=== PATIENT | female | born 1995 | race Caucasian/White ===

== ENCOUNTER → 2024-01-01 14:06 | Outpatient (REF) | payer OTHER, SELFPAY | LOC: PNTC 14:06 | PROVIDERS: ATTENDING PHYSICIAN Obstetrics & Gynecology | DX: Z34.82 Encounter for supervision of other normal pregnancy, second trimester (principal) | CPT/HCPCS: 76805 ==

== ENCOUNTER 2024-03-29 12:42 | Observation (INO) | payer OTHER, SELFPAY ==
[2024-03-29 12:46] VITALS: BMI 38.1
[2024-03-29 12:50] VITALS: BP 152/88
[2024-03-29 13:46] LABS: % Basophils 0.5 % (0-2); % Eosinophils 0.8 % (0-6); % Immature Granulocytes 0.9 % (0-0.5); % Lymphocytes 18.5 % (20.5-51.1); % Monocytes 8.7 % (1.7-9.3); % Neutrophils 70.6 % (42.2-75.2); Absolute Basophils 0.1 10^3/uL (0-0.2); Absolute Eosinophils 0.1 10^3/uL (0-0.7); Absolute Immature Granulocytes 0.1 10^3/uL (0-0.05); Absolute Lymphocytes 2.3 10^3/uL (1.2-3.4); Absolute Monocytes 1.1 10^3/uL (0.1-0.6); Absolute Neutrophils 8.6 10^3/uL (1.4-6.5); Hematocrit 38.1 % (37.0-47.0); Hemoglobin 12.4 g/dL (12.0-16.0); Mean Corp Hgb Conc. 32.5 g/dL (33.0-37.0); Mean Corpuscular Hgb 29.5 pg (27.0-31.0); Mean Corpuscular Volume 90.5 fL (81.0-99.0); Mean Platelet Volume 11.3 fL (7.4-10.4); Nucleated Red Blood Cells % 0 %; Platelet Count 173 10^3/uL (130-400); Red Blood Cell Count 4.21 10^6/uL (4.20-5.40); Red Cell Dist. Width 12.9 % (11.5-14.5); White Blood Cell Count 12.2 10^3/uL (4.8-10.8)
[2024-03-29 14:00] LABS: ALT (SGPT) 14 U/L (0-35); AST (SGOT) 21 U/L (14-36); Albumin 3.5 g/dl (3.5-5.0); Alkaline Phosphatase 303 U/L (38-126); Blood Urea Nitrogen 17 mg/dl (7-17); Calcium 9.7 mg/dl (8.4-10.2); Carbon Dioxide 21 mmol/L (22-30); Chloride 108 mmol/L (98-107); Estimated Creatinine Clearance > 125 ml/min; Glucose 75 mg/dl (70-99); Potassium 4.3 mmol/L (3.5-5.1); Sodium 135 mmol/L (135-145); Total Bilirubin 0.4 mg/dl (0.2-1.3); Total Protein 6.4 g/dl (6.3-8.2); eGFR > 60.00
[2024-03-29 14:26] LABS: Protein/creatinine Ratio 1.7; Urine Protein 65 mg/dl
== END 2024-03-29 15:00 | disposition home or self-care (01) ==
LOC: LDRP 12:42
PROVIDERS: ADMITTING PHYSICIAN Obstetrics & Gynecology
DX: O14.03 Mild to moderate pre-eclampsia, third trimester (principal); O12.23 Gestational edema with proteinuria, third trimester; Z3A.33 33 weeks gestation of pregnancy
CPT/HCPCS: 59025; 80053; 82570; 84156; 85025; G0378

== ENCOUNTER 2024-04-06 22:45 | Observation (INO) | payer OTHER, SELFPAY ==
[2024-04-06 23:02] VITALS: BP 163/95; BMI 37.6
[2024-04-06 23:20] LABS: Hematocrit 33.4 % (37.0-47.0); Hemoglobin 11.7 g/dL (12.0-16.0); Mean Corpuscular Hgb 30.3 pg (27.0-31.0); Mean Corpuscular Volume 86.5 fL (81.0-99.0); Mean Platelet Volume 11.6 fL (7.4-10.4); Platelet Count 153 10^3/uL (130-400); Red Blood Cell Count 3.86 10^6/uL (4.20-5.40); Red Cell Dist. Width 13.2 % (11.5-14.5); White Blood Cell Count 11.8 10^3/uL (4.8-10.8)
[2024-04-06 23:29] LABS: Urine Albumin 2+ (Neg - Trace); Urine Bilirubin Negative (Negative); Urine Character Clear (Clear); Urine Color Yellow; Urine Glucose Negative (Negative); Urine Ketone Negative (Negative); Urine Leukocyte Negative (Negative); Urine Nitrite Negative (Negative); Urine Occult Blood Negative (Negative); Urine Specific Gravity 1.005 (<1.030); Urine Urobilinogen Negative (Neg - 1+)
[2024-04-06 23:41] LABS: ALT (SGPT) 25 U/L (0-35); AST (SGOT) 33 U/L (14-36); Albumin 3.1 g/dl (3.5-5.0); Alkaline Phosphatase 311 U/L (38-126); Blood Urea Nitrogen 15 mg/dl (7-17); Calcium 9.1 mg/dl (8.4-10.2); Carbon Dioxide 23 mmol/L (22-30); Chloride 106 mmol/L (98-107); Estimated Creatinine Clearance > 125 ml/min; Glucose 85 mg/dl (70-99); Potassium 4.2 mmol/L (3.5-5.1); Sodium 134 mmol/L (135-145); Total Bilirubin 0.3 mg/dl (0.2-1.3); Total Protein 5.9 g/dl (6.3-8.2); Uric Acid 7.5 mg/dl (2.5-6.2); eGFR > 60.00
[2024-04-06 23:45] LABS: Protein/creatinine Ratio 15.5; Urine Protein 187 mg/dl
[2024-04-07] MEDS: CELESTONE SOLUSPAN 2 MG IM (00:41)
[2024-04-07 00:55] LABS: Urine Amorphous Seen; Urine Bacteria Few (Negative); Urine Red Blood Cell 0-2 /HPF (0-2); Urine Squamous Cell 21-25 /LPF (Few); Urine White Cell 0-2 /HPF (0-5)
[2024-04-07 05:47] LABS: Hematocrit 36.1 % (37.0-47.0); Hemoglobin 12.4 g/dL (12.0-16.0); Mean Corp Hgb Conc. 34.3 g/dL (33.0-37.0); Mean Corpuscular Hgb 30.3 pg (27.0-31.0); Mean Corpuscular Volume 88.3 fL (81.0-99.0); Mean Platelet Volume 11.5 fL (7.4-10.4); Platelet Count 147 10^3/uL (130-400); Red Blood Cell Count 4.09 10^6/uL (4.20-5.40); Red Cell Dist. Width 13.1 % (11.5-14.5); White Blood Cell Count 12.2 10^3/uL (4.8-10.8)
[2024-04-07 06:01] LABS: ALT (SGPT) 23 U/L (0-35); AST (SGOT) 31 U/L (14-36); Albumin 3.2 g/dl (3.5-5.0); Alkaline Phosphatase 336 U/L (38-126); Blood Urea Nitrogen 13 mg/dl (7-17); Carbon Dioxide 22 mmol/L (22-30); Chloride 107 mmol/L (98-107); Estimated Creatinine Clearance > 125 ml/min; Glucose 97 mg/dl (70-99); Potassium 4.7 mmol/L (3.5-5.1); Sodium 134 mmol/L (135-145); Total Bilirubin 0.3 mg/dl (0.2-1.3); eGFR > 60.00
[2024-04-07] MEDS: TYLENOL 1000 MG PO (16:42)
[2024-04-08] MEDS: CELESTONE SOLUSPAN 2 MG IM (00:10)
[2024-04-08 05:03] LABS: Hematocrit 38.2 % (37.0-47.0); Hemoglobin 12.7 g/dL (12.0-16.0); Mean Corp Hgb Conc. 33.2 g/dL (33.0-37.0); Mean Corpuscular Hgb 30.8 pg (27.0-31.0); Mean Corpuscular Volume 92.5 fL (81.0-99.0); Mean Platelet Volume 11.4 fL (7.4-10.4); Platelet Count 143 10^3/uL (130-400); Red Blood Cell Count 4.13 10^6/uL (4.20-5.40); White Blood Cell Count 12.2 10^3/uL (4.8-10.8)
[2024-04-08 05:36] LABS: ALT (SGPT) 22 U/L (0-35); AST (SGOT) 27 U/L (14-36); Albumin 3.3 g/dl (3.5-5.0); Alkaline Phosphatase 326 U/L (38-126); Blood Urea Nitrogen 15 mg/dl (7-17); Calcium 9.1 mg/dl (8.4-10.2); Carbon Dioxide 21 mmol/L (22-30); Chloride 106 mmol/L (98-107); Estimated Creatinine Clearance > 125 ml/min; Glucose 104 mg/dl (70-99); Sodium 133 mmol/L (135-145); Total Bilirubin 0.3 mg/dl (0.2-1.3); Total Protein 6.2 g/dl (6.3-8.2); eGFR > 60.00
== END 2024-04-08 14:42 | disposition home or self-care (01) ==
LOC: LDRP 22:45
PROVIDERS: Obstetrics & Gynecology; ADMITTING PHYSICIAN Obstetrics & Gynecology
DX: O14.03 Mild to moderate pre-eclampsia, third trimester (principal); Z3A.34 34 weeks gestation of pregnancy; O32.1XX0 Maternal care for breech presentation, not applicable or unspecified
CPT/HCPCS: 76815; 80053; 81003; 81015; 82570; 84156; 84550; 85027; 86850; 86870; 86900; 86901; 87070; G0378

== ENCOUNTER 2024-04-09 04:29 | Inpatient (IN) | payer OTHER, SELFPAY ==
[2024-04-09 05:18] LABS: % Basophils 0.2 % (0-2); % Eosinophils 0.1 % (0-6); % Immature Granulocytes 1.7 % (0-0.5); % Lymphocytes 19.6 % (20.5-51.1); % Monocytes 7.3 % (1.7-9.3); % Neutrophils 71.1 % (42.2-75.2); Absolute Immature Granulocytes 0.2 10^3/uL (0-0.05); Absolute Lymphocytes 2.7 10^3/uL (1.2-3.4); Absolute Neutrophils 9.9 10^3/uL (1.4-6.5); Hematocrit 34.7 % (37.0-47.0); Hemoglobin 11.8 g/dL (12.0-16.0); Mean Corpuscular Hgb 30.3 pg (27.0-31.0); Mean Corpuscular Volume 89.2 fL (81.0-99.0); Mean Platelet Volume 11.6 fL (7.4-10.4); Nucleated Red Blood Cells % 0 %; Platelet Count 135 10^3/uL (130-400); Red Blood Cell Count 3.89 10^6/uL (4.20-5.40); Red Cell Dist. Width 13.4 % (11.5-14.5); White Blood Cell Count 13.9 10^3/uL (4.8-10.8)
[2024-04-09 05:26] LABS: Cord ABG Comment CORD BLOOD; O2 Saturation % Cord ABG 27.9 %; PO2 Cord ABG 25 mmHg
[2024-04-09 05:30] LABS: O2 Saturation % Cord ABG 14.9 %; PO2 Cord ABG 20 mmHg
[2024-04-09 05:34] LABS: pH Cord ABG < 6.80
[2024-04-09 05:35] LABS: PCO2 Cord ABG > 115 mmHg
[2024-04-09 05:36] LABS: PCO2 Cord ABG > 115 mmHg; pH Cord ABG < 6.80
[2024-04-09 05:51] VITALS: BP 119/79
[2024-04-09 05:57] LABS: Fibrinogen 224 MG/DL (199-459)
[2024-04-09 06:00] VITALS: BP 113/73; BMI 37.6
[2024-04-09] MEDS: TYLENOL 1000 MG PO (06:08)
[2024-04-09] MEDS: DILAUDID 0.25 MG IV (06:12)
[2024-04-09 06:15] VITALS: BP 137/78
[2024-04-09] MEDS: PITOCIN 30 UNITS/NSS 500 ML IV (06:29)
[2024-04-09 06:30] VITALS: BP 144/80
[2024-04-09] MEDS: LR 1000 IV ×3 (07:15→15:00)
[2024-04-09] MEDS: TORADOL 15 MG IV (08:00)
[2024-04-09 08:26] LABS: ALT (SGPT) 21 U/L (0-35); AST (SGOT) 36 U/L (14-36); Albumin 3.1 g/dl (3.5-5.0); Alkaline Phosphatase 273 U/L (38-126); Blood Urea Nitrogen 23 mg/dl (7-17); Carbon Dioxide 21 mmol/L (22-30); Chloride 109 mmol/L (98-107); Glucose 85 mg/dl (70-99); Potassium 4.7 mmol/L (3.5-5.1); Sodium 136 mmol/L (135-145); Total Bilirubin 0.5 mg/dl (0.2-1.3); Total Protein 5.9 g/dl (6.3-8.2); eGFR > 60.00
[2024-04-09] MEDS: MAGNESIUM SULFATE 100 IV (08:40)
[2024-04-09] MEDS: MAGNESIUM SULFATE 40 GRAM 1000 IV (09:02)
[2024-04-09] MEDS: TRANDATE 20 MG IV (09:10)
[2024-04-09] MEDS: TRANDATE 200 MG PO ×2 (11:06→19:55)
[2024-04-09] MEDS: TORADOL IV (14:00)
[2024-04-09 14:51] LABS: Hematocrit 26.2 % (37.0-47.0); Hemoglobin 8.9 g/dL (12.0-16.0); Mean Corpuscular Hgb 30.3 pg (27.0-31.0); Mean Corpuscular Volume 89.1 fL (81.0-99.0); Red Blood Cell Count 2.94 10^6/uL (4.20-5.40); Red Cell Dist. Width 13.5 % (11.5-14.5); White Blood Cell Count 24.1 10^3/uL (4.8-10.8)
[2024-04-09 14:56] LABS: ALT (SGPT) 46 U/L (0-35); AST (SGOT) 126 U/L (14-36); Albumin 2.3 g/dl (3.5-5.0); Alkaline Phosphatase 209 U/L (38-126); Blood Urea Nitrogen 31 mg/dl (7-17); Calcium 8.2 mg/dl (8.4-10.2); Carbon Dioxide 20 mmol/L (22-30); Chloride 108 mmol/L (98-107); Glucose 99 mg/dl (70-99); Potassium 5.3 mmol/L (3.5-5.1); Sodium 131 mmol/L (135-145); Total Bilirubin 0.5 mg/dl (0.2-1.3); Total Protein 4.7 g/dl (6.3-8.2); eGFR 32.31
[2024-04-09 15:19] LABS: % Basophils 0.2 % (0-2); % Immature Granulocytes 1.3 % (0-0.5); % Lymphocytes 6.8 % (20.5-51.1); % Monocytes 8.4 % (1.7-9.3); % Neutrophils 83.3 % (42.2-75.2); Absolute Basophils 0.1 10^3/uL (0-0.2); Absolute Immature Granulocytes 0.3 10^3/uL (0-0.05); Absolute Lymphocytes 1.6 10^3/uL (1.2-3.4); Mean Platelet Volume 11.7 fL (7.4-10.4); Nucleated Red Blood Cells % 0 %; Platelet Count 61 10^3/uL (130-400)
--- NOTE | 2024-04-09 15:54 | W.CON.NEPH ---
Addendum entered and electronically signed by Ale Antonio MD 04/09/24 16:56:
After more consideration, I will also send complement labs, lupus labs, APLS
Unsure if this could be TTP vs. aHUS vs. HELLP?
Original Note:
Consultation
-
Date/Time Consultation Requested: 04/09/2024 13:37
Date/Time Consultation Performed: 04/09/2024 3:54PM
Requesting Provider: Felisha Garcia
Performing Provider: Ale Antonio
Reason for Consultation: YUE
Medical History
-
Chief Complaint: YUE, oliguria
History of Present Illness:
Ms. Perez is a 28YOF with no significant past medical history () who nephrology is seeing post after C section at 5AM today for oliguria and YUE.
Of note, she was here over the weekend for pre-eclampsia but she did not meet criteria for delivery and was sent home on Monday. She presented this AM due to bleeding and cramping. She had placental abruption and taken for emergent C section. Her
male was transferred to [facility] for resuscitation. She states that she is feeling well after surgery this AM. She does note significant edema. Her urine output is noted to be anywhere from 0-30cc/hr. She is recieving a Mg gtt at this time, along
with LR. Of note, she did notice that for 2 weeks prior to delivery, she did have decreased UOP compared to prior. Urine was still clear yellow in color.
Past Medical History
Past Medical History: None
Past Surgical History: None
Social History
Tobacco: Non-Smoker
Alcohol: Occasional
Drug: None
Family History
no family history of kidney problems
Family History: Not Pertinent
Allergies / Home Medications
Allergy/AdvReac Type Severity Reaction Status Date / Time
No Known Allergies Allergy Verified 04/06/24 23:02
�Medication �Instructions �Recorded �Confirmed �Type
1 tab PO 1XD Supplement 03/29/24 04/06/24 History
Review of Systems
-
History Source: Patient
All other systems: Negative unless noted
Constitutional: Fatigue
Physical Exam
Vital Signs
Vital Signs
Temp Pulse Resp BP Pulse Ox
97.9 F 78 13 146/84 100
04/09/24 06:30 04/09/24 11:06 04/09/24 06:30 04/09/24 11:06 04/09/24 06:30
Lab Results
WBC 24.1 10^3/uL (4.8-10.8) H 04/09/24 14:23
RBC 2.94 10^6/uL (4.20-5.40) L 04/09/24 14:23
Hgb 8.9 g/dL (12.0-16.0) L D 04/09/24 14:23
Hct 26.2 % (37.0-47.0) L 04/09/24 14:23
Plt Count 61 10^3/uL (130-400) L D 04/09/24 14:23
Sodium 131 mmol/L (135-145) L 04/09/24 14:23
Potassium 5.3 mmol/L (3.5-5.1) H 04/09/24 14:23
Chloride 108 mmol/L (98-107) H 04/09/24 14:23
Carbon Dioxide 20 mmol/L (22-30) L 04/09/24 14:23
BUN 31 mg/dl (7-17) H 04/09/24 14:23
Creatinine 2.1 mg/dL (0.6-1.0) H 04/09/24 14:23
eGFR 32.31 04/09/24 14:23
Glucose 99 mg/dl (70-99) 04/09/24 14:23
Calcium 8.2 mg/dl (8.4-10.2) L 04/09/24 14:23
Albumin 2.3 g/dl (3.5-5.0) L 04/09/24 14:23
Physical Exam
General: AOx3, No Distress and Nontoxic
HEENT: PERRL, EOMI, Anicteric, Conjunctivae Clear, Ear/Nose Intact, Hearing Normal, Oropharynx Clear/Moist, Dentition Intact, Facial Symmetry, Neck Supple, Trachea Midline, No JVD and No Thyromegaly
Respiratory: Clear
Cardiac: S1/S2, Regular Rate/Rhythm and Edema (+3 pitting edema to the knees)
Breast: N/A
Abdomen: Soft, Nondistended and Other (C section scar)
Rectal: Deferred by Provider
Genito-urinary: Clear Urine
Musculoskeletal: No Clubbing, No Cyanosis and Edema
Skin: No Rash, Warm and Dry
Neuro: Nonfocal/Grossly Intact
Hematologic/Lymphatic: No Cervical Lymphadenopathy
Psych: Mood/afflect pleasant and Insight/judgement good
Data Reviewed
-
Labs: Labs Reviewed by me
Old Records: Reviewed
Assessment/Plan
-
Assessment
Pre-eclampsia
Placental abruption
YUE
oliguria
NAGMA + respiratory alkalosis
Plan:
- Patient noted to have acute worsening of kidney function from baseline of 0.7 (still a bit high for ) to 2.1 along with oliguria
- I am concerned about ATN in the setting of placental abruption vs pre-eclampsia vs TMA (Hgb and platelets noted) vs. post renal
- Obtain LDH, hapto, consider heme c/s
- please obtain peripheral smear
- UA, UPCR, UACR
- consider renal ultrasound
- continue supportive measures, keep MAP >65
- monitor I/Os
- avoid further nephrotoxic agents
--- NOTE | 2024-04-09 17:28 | CON.ONC ---
Impression
Impression
28 yo F w/ mild preeclampsia at 35wks gestation, underwent emergent this am for vag bleeding, with HTN post-op, and now with drop in hgb & platelets, and bump in creatinine w/ decreased urine output, and bump in AST/ALT
Peripheral smear reviewed: noted for rare (0-1) schistocyte/HPF
Plan
Plan
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
HTN prior to abnormal lab findings is typical of HELLP
Peripheral smear reviewed, w/ rare schistocytes, as can be seen in HELLP. Would expect more schistocytes in TTP
Await pending LDH, retic count, haptoglobin; normal bilirubin noted. LDH is often markedly elevated in TTP, and less so in HELLP
Elevated AST/ALT are suggestive of HELLP, usually normal/minimally elevated in TTP and HUS
In addition to labs ordered by Dr. Antonio, will repeat CBC, CMP, check retic count, coags/fibrinogen, [id number], and von willebrand multimers.
Treatment of HELLP/preeclampsia with severe features is supportive care. Platelet count usually nadirs 24-28hr after delivery. There is no role for plasma exchange in HELLP.
Will follow along closely.
Patient History
History of Present Illness
This is a 28yo F who was being monitored for mild preeclampia in , who presented this morning at 35 weeks with vaginal bleeding and heart rates in the 60s, for which she was taken for emergent . The baby was breech, and was
found to have scores of 1, 5, 8 and at 1, 5 and 10 minutes, and has been transferred to [facility] where he is reportedly doing well. Post-op blood pressures were elevated, necessitating labetalol.
Admission labs were noted for hgb of 11.8 and platelet count of 135, BUN of 23 and creatinine of 1.0, with normal AST/ALT. Labs this afternoon noted for hgb 8.9, platelet count of 61 and elevated AST/ALT. Bilirubin is normal. Creatinine is up to
2.1, with decreased UOP.
Patient notes some tenderness at her incision and feels thirsty. She denies any bleeding from IV sites, new bruises, cough, dyspnea, chest pain, or other complaints.
Asked to evaluate for thrombotic microangiopathies other than HELLP (ie, TTP, HUS)
Past-Medical/Surgical History
PMH/PSH - none
FH: no family h/o blood/bleeding d/o
SH: non smoker,
Patient Medication
�Medication �Instructions �Recorded �Confirmed �Last Taken �Type
1 tab PO 1XD Supplement 03/29/24 04/09/24 04/06/24 08:00 History
Active Medications
Generic Name Dose Route Start Last Admin
Trade Name Freq PRN Reason Stop Dose Admin
Acetaminophen 650 mg 04/09/24 06:14
Acetaminophen 325 Mg Tablet PO 05/07/24 06:13
Q4HPRN PRN
mild pain
Calcium Carbonate 2 tablet 04/09/24 06:14
Calcium Carbonate 500 Mg (Regular-Strength) Chew Tablet PO 05/07/24 06:13
Q6HPRN PRN
indigestion
Calcium Gluconate 1,000 mg 04/09/24 08:06
Calcium Gluconate 10% (100 Mg/Ml) 10 Ml Vial IV 05/07/24 08:05
PRN PRN
mag toxicity or resp rate <12
Diphenhydramine HCl 25 mg 04/09/24 05:08
Diphenhydramine 50 Mg/Ml 1 Ml Vial IV 04/10/24 05:08
PACU-ONCEPRN PRN
itching
Diphtheria/Tetanus/Acell Pertussis 0.5 ml 04/12/24 08:00
Adacel (Tetanus/Dipth/Acellular Pertussis) 0.5 Ml IM 04/12/24 08:01
.ONCE ONE
Hydralazine HCl 10 mg 04/09/24 10:00
Hydralazine 20 Mg/Ml Vial IV 04/10/24 09:59
ONCE PRN PRN
SBP >/= 160 or DBP >/= 110
Hydromorphone HCl 0.25 mg 04/09/24 05:08 04/09/24 06:12
Hydromorphone 0.25 Mg/0.5 Ml Syringe IV 0.25 mg
PACU-Q5MPRN PRN Administration
pain no po access
Oxytocin/Sodium Chloride 30 unit in 500 mls @ 0 mls/hr 04/09/24 04:45 04/09/24 06:29
Pitocin 30 Units/Nss 500 Ml IV 04/10/24 04:44 500 mls
DIRECTED AUREA Administration
As Directed
Oxytocin/Sodium Chloride 30 unit in 500 mls @ 0 mls/hr 04/09/24 06:14
Pitocin 30 Units/Nss 500 Ml IV 05/07/24 06:13
PRN PRN
excessive bleeding
As Directed
Magnesium Sulfate 40 gram in 1,000 mls @ 50 mls/hr 04/09/24 08:15 04/09/24 09:02
Magnesium Sulfate 40 Gram IV 04/10/24 08:14 1,000 mls
.Q20H AUREA Administration
Ibuprofen 600 mg 04/10/24 08:00
Ibuprofen 600 Mg Tablet PO 05/08/24 07:59
Q6HPRN PRN
cramps
Labetalol HCl 20 mg 04/09/24 10:00
Labetalol Hcl 5 Mg/1 Ml (20 Mg/4 Ml) Injection IV 04/10/24 09:59
ONCE PRN PRN
SBP >/= 160 or DBP >/= 110
Labetalol HCl 40 mg 04/09/24 10:00
Labetalol Hcl 5 Mg/1 Ml (20 Mg/4 Ml) Injection IV 04/10/24 09:59
ONCE PRN PRN
SBP >/= 160 or DBP >/= 110
Labetalol HCl 80 mg 04/09/24 10:00
Labetalol Hcl 5 Mg/1 Ml (20 Mg/4 Ml) Injection IV 04/10/24 09:59
ONCE PRN PRN
SBP >/= 160 or DBP >/= 110
Labetalol HCl 200 mg 04/09/24 11:00 04/09/24 11:06
Labetalol 200 Mg Tablet PO 05/07/24 10:59 200 mg
BID AUREA Administration
Meperidine HCl 12.5 mg 04/09/24 05:08
Meperidine 25 Mg/Ml Injection IV 04/10/24 05:08
PACU-Q5MPRN PRN
shivering
Methylergonovine Maleate 0.2 mg 04/09/24 06:14
Methergine (0.2 Mg/Ml) 1 Ml Injection IM
ONCE PRN PRN
excessive bleeding
Metoclopramide HCl 10 mg 04/09/24 06:14
Metoclopramide 10 Mg/2 Ml Vial IV 05/07/24 06:13
Q6HPRN PRN
nausea/vomiting
Morphine Sulfate 2 mg 04/09/24 05:08
Morphine 2 Mg/Ml Syringe IV 04/10/24 05:08
PACU-Q5MPRN PRN
breakthrough pain
Ondansetron HCl 4 mg 04/09/24 05:08
Ondansetron 4 Mg/2 Ml Vial IV 04/10/24 05:08
PACU-ONCEPRN PRN
nausea
Oxycodone/Acetaminophen 1 tablet 04/09/24 06:14
Oxycodone 5 Mg/Apap 325 Mg (Percocet) PO 04/23/24 06:13
Q4HPRN PRN
moderate pain
Oxycodone/Acetaminophen 2 tablet 04/09/24 06:14
Oxycodone 5 Mg/Apap 325 Mg (Percocet) PO 04/23/24 06:13
Q4HPRN PRN
severe pain
Rho Immune Globulin 1,500 unit 04/10/24 08:00
Rho(D) Immune Globulin (Hyperrho S/D) 1,500 Unit Syringe (300 Mcg) IM 04/10/24 08:01
ONCE ONE
Senna/Docusate Sodium 1 tablet 04/09/24 06:14
Docusate W/Senna (Catalina-Colace) Tablet PO 05/07/24 06:13
DAILYPRN PRN
constipation
Simethicone 80 mg 04/09/24 06:14
Simethicone 80 Mg Chewable Tablet PO 05/07/24 06:13
TIDPRN PRN
flatulence
Sodium Chloride 0 flush 04/09/24 08:00
Sodium Chloride 0.9% (Flush) Syringe IV 05/07/24 07:59
PER PROTOCOL AUREA
Review of Systems
-
History Source: Patient
All Other Systems: Not reviewed unless documented
Physical Exam
-
General: Well Developed, Well Nourished, No Apparent Distress and Conversant
HEENT: Moist Mucous Membranes; Negative Jaundice
Musculoskeletal: No Clubbing, No Cyanosis and No Edema
Extremities: No C/C/E
Neurology: Non Focal, No Lateralizing Symptoms and No Word Finding Difficulty
Skin: Warm, Dry, IV Access / Catheter Site (normal appearing, no bleeding) and No Ecchymosis; Negative Rash, Ulcers, Lesions or Jaundice
Psych: Calm and Intact Judgement/Insight
Labs
Lab Results
WBC 24.1 10^3/uL (4.8-10.8) H 04/09/24 14:23
RBC 2.94 10^6/uL (4.20-5.40) L 04/09/24 14:23
Hgb 8.9 g/dL (12.0-16.0) L D 04/09/24 14:23
Hct 26.2 % (37.0-47.0) L 04/09/24 14:23
MCV 89.1 fL (81.0-99.0) 04/09/24 14:23
MCH 30.3 pg (27.0-31.0) 04/09/24 14:23
MCHC 34.0 g/dL (33.0-37.0) 04/09/24 14:23
RDW 13.5 % (11.5-14.5) 04/09/24 14:23
Plt Count 61 10^3/uL (130-400) L D 04/09/24 14:23
MPV 11.7 fL (7.4-10.4) H 04/09/24 14:23
Abs Immat Gran (auto) 0.3 10^3/uL (0-0.05) H 04/09/24 14:23
Absolute Neuts (auto) 20.0 10^3/uL (1.4-6.5) H 04/09/24 14:23
Absolute Lymphs (auto) 1.6 10^3/uL (1.2-3.4) 04/09/24 14:23
Absolute Monos (auto) 2.0 10^3/uL (0.1-0.6) H 04/09/24 14:23
Absolute Eos (auto) 0.0 10^3/uL (0-0.7) 04/09/24 14:23
Absolute Basos (auto) 0.1 10^3/uL (0-0.2) 04/09/24 14:23
Immature Gran % 1.3 % (0-0.5) H 04/09/24 14:23
Neutrophils % 83.3 % (42.2-75.2) H 04/09/24 14:23
Lymphocytes % 6.8 % (20.5-51.1) L 04/09/24 14:23
Monocytes % 8.4 % (1.7-9.3) 04/09/24 14:23
Eosinophils % 0.0 % (0-6) 04/09/24 14:23
Basophils % 0.2 % (0-2) 04/09/24 14:23
Creatinine 2.1 mg/dL (0.6-1.0) H 04/09/24 14:23
Vital Signs
Vital Signs
Temp Pulse Resp BP Pulse Ox
97.9 F 78 13 146/84 100
04/09/24 06:30 04/09/24 11:06 04/09/24 06:30 04/09/24 11:06 04/09/24 06:30
[2024-04-09 17:37] LABS: LDH 1447 U/L (120-246)
[2024-04-09 18:04] LABS: Urine Albumin 3+ (Neg - Trace); Urine Bilirubin Negative (Negative); Urine Character Slightly Cloudy (Clear); Urine Color Yellow; Urine Glucose 1+ (Negative); Urine Ketone Negative (Negative); Urine Leukocyte Trace (Negative); Urine Nitrite Negative (Negative); Urine Occult Blood 3+ (Negative); Urine Specific Gravity 1.015 (<1.030); Urine Urobilinogen Negative (Neg - 1+)
[2024-04-09 18:19] LABS: Urine Bacteria Many (Negative); Urine White Cell 16-20 /HPF (0-5)
[2024-04-09 19:20] LABS: Hematocrit 23.6 % (37.0-47.0); Hemoglobin 7.9 g/dL (12.0-16.0); Mean Corp Hgb Conc. 33.5 g/dL (33.0-37.0); Mean Corpuscular Volume 89.7 fL (81.0-99.0); Platelet Count 68 10^3/uL (130-400); Red Blood Cell Count 2.63 10^6/uL (4.20-5.40); Red Cell Dist. Width 13.6 % (11.5-14.5); White Blood Cell Count 21.7 10^3/uL (4.8-10.8)
[2024-04-09 19:24] LABS: INR 1.08; PT 13.9 Sec (11.4-14.6)
[2024-04-09 19:25] LABS: APTT 18.5 Sec (23.4-35.0); Fibrinogen 182 MG/DL (199-459)
[2024-04-09 19:29] LABS: ALT (SGPT) 41 U/L (0-35); AST (SGOT) 107 U/L (14-36); Albumin 2.4 g/dl (3.5-5.0); Alkaline Phosphatase 207 U/L (38-126); Blood Urea Nitrogen 35 mg/dl (7-17); Calcium 8.1 mg/dl (8.4-10.2); Carbon Dioxide 17 mmol/L (22-30); Chloride 105 mmol/L (98-107); Glucose 94 mg/dl (70-99); Potassium 5.5 mmol/L (3.5-5.1); Sodium 130 mmol/L (135-145); Total Bilirubin 0.4 mg/dl (0.2-1.3); Total Protein 4.8 g/dl (6.3-8.2); eGFR 27.52
[2024-04-09 20:20] LABS: Protein/creatinine Ratio 23.1; Urine Protein 770 mg/dl
[2024-04-09 20:53] LABS: Microalbumin, Random Urine > 57.0 mg/dl (0.6-1.7)
[2024-04-10] VITALS (12 sets, daily range): BP systolic 117–168; BP diastolic 67–87
--- NOTE | 2024-04-10 03:35 | DOWNTIME ---
There was a [employer] Client Certified Retinal Angiographer Downtime on 04/10/2024 from 0100 to 04/10/2024 at 0255. Downtime documentation of patient's care, including medication administrations, has been reconciled in the electronic record per guidelines. Refer to the
patient's paper chart under the miscellaneous tab to see printed paper medication records and downtime forms.
[2024-04-10 07:33] LABS: Hemoglobin 7.4 g/dL (12.0-16.0); Mean Corp Hgb Conc. 33.6 g/dL (33.0-37.0); Mean Corpuscular Hgb 30.5 pg (27.0-31.0); Mean Corpuscular Volume 90.5 fL (81.0-99.0); Mean Platelet Volume 12.3 fL (7.4-10.4); Platelet Count 53 10^3/uL (130-400); Red Blood Cell Count 2.43 10^6/uL (4.20-5.40); Red Cell Dist. Width 13.8 % (11.5-14.5); White Blood Cell Count 16.2 10^3/uL (4.8-10.8)
--- NOTE | 2024-04-10 08:17 | W.PN.ONC2 ---
Today's Communication / Plan
-
Continue to follow labs. Suspect resolution s/p delivery in 1-2 days.
Impression
Impression
28 yo F w/ mild preeclampsia at 35wks gestation, underwent emergent 04/09 for vag bleeding, with HTN post-op, and now with drop in hgb & platelets, and bump in creatinine w/ decreased urine output, and bump in AST/ALT
Peripheral smear reviewed: noted for rare (0-1) schistocyte/HPF
Plan
Plan
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
HTN prior to abnormal lab findings is typical of HELLP
Peripheral smear reviewed, w/ rare schistocytes, as can be seen in HELLP. Would expect more schistocytes in TTP
Normal bilirubin noted.
Elevated AST/ALT are suggestive of HELLP, usually normal/minimally elevated in TTP and HUS
In addition to labs ordered by Dr. Antonio, will repeat CBC, CMP, check retic count, coags/fibrinogen, [id number], and von willebrand multimers.
Treatment of HELLP/preeclampsia with severe features is supportive care. Platelet count usually nadirs 24-28hr after delivery. There is no role for plasma exchange in HELLP.
Will follow along closely.
Subjective/Objective
Chief Complaint
ACS Heme Onc
Subjective
No c/o
Vital Signs:
Vital Signs
Temp Pulse Resp BP Pulse Ox
97.6 F 81 16 117/81 100
04/10/24 07:52 04/10/24 07:52 04/10/24 07:52 04/10/24 07:52 04/09/24 06:30
Lab Results:
Laboratory Data
WBC 16.2 10^3/uL (4.8-10.8) H 04/10/24 06:41
Hgb 7.4 g/dL (12.0-16.0) L 04/10/24 06:41
Plt Count 53 10^3/uL (130-400) L D 04/10/24 06:41
PT 13.9 Sec (11.4-14.6) 04/09/24 18:58
INR 1.08 04/09/24 18:58
APTT 18.5 Sec (23.4-35.0) L 04/09/24 18:58
eGFR 27.52 04/09/24 18:58
Laboratory Tests
04/09/24
14:23
Total Bilirubin 0.5
Lactate Dehydrogenase 1447 H
Physical Exam
Cardiology: S1 and S2
Pulmonary: Clear
[2024-04-10] MEDS: TRANDATE 200 MG PO ×2 (09:58→21:01)
--- NOTE | 2024-04-10 10:28 | W.PN.NEPH.PH ---
Today's Communication / Plan
-
follow BMP
Assessment/Plan
-
Assessment
Pre-eclampsia
Placental abruption
YUE
oliguria
NAGMA + respiratory alkalosis
Plan:
clinically appears to be HELLP
would expect improvement in the next 48-72 hrs. If not, will need to entertain other TMA dxs
follow BMP
If Cr stable/improving and edema is a problem, can try lasix
-
-
Date of Service: April 10, 2024
CC / HPI / ROS
-
Chief Complaint:
YUE
History of Present Illness:
BP stable
LFTs improving
Platelets lower 53
edema persists, but nonologuric
Review of Systems:
no CP/SOB
Labs
-
Labs:
WBC 16.2 10^3/uL (4.8-10.8) H 04/10/24 06:41
RBC 2.43 10^6/uL (4.20-5.40) L 04/10/24 06:41
Hgb 7.4 g/dL (12.0-16.0) L 04/10/24 06:41
Hct 22.0 % (37.0-47.0) L 04/10/24 06:41
Plt Count 53 10^3/uL (130-400) L D 04/10/24 06:41
eGFR 27.52 04/09/24 18:58
Albumin 2.4 g/dl (3.5-5.0) L 04/09/24 18:58
Physical Exam
-
Vital Signs:
Vital Signs
Temp Pulse Resp BP Pulse Ox
97.6 F 68 16 127/71 100
04/10/24 07:52 04/10/24 09:58 04/10/24 07:52 04/10/24 09:58 07/16/24 06:30
Cardiovascular:: Regular rate and rhythm
Respiratory:: Bilateral: CTA
Lung Excursion:: Normal
Abdomen:: Nontender and Soft
Bowel Sounds:: Normal
Extremity Edema:: +3: Bilateral:
[2024-04-10 11:32] LABS: Blood Urea Nitrogen 45 mg/dl (7-17); Calcium 7.6 mg/dl (8.4-10.2); Carbon Dioxide 18 mmol/L (22-30); Chloride 102 mmol/L (98-107); Estimated Creatinine Clearance 29 ml/min; Glucose 83 mg/dl (70-99); Sodium 127 mmol/L (135-145); eGFR 16.37
[2024-04-10] MEDS: DEXTROSE 50% SYRINGE 25 GRAMS IV (12:21)
[2024-04-10] MEDS: NOVOLIN R 0.1 UNITS IV (12:22)
[2024-04-10 12:28] LABS: ALT (SGPT) 34 U/L (0-35); AST (SGOT) 65 U/L (14-36); Albumin 2.4 g/dl (3.5-5.0); Alkaline Phosphatase 190 U/L (38-126); Direct Bilirubin 0.1 mg/dl (0.0-0.4); Total Bilirubin 0.2 mg/dl (0.2-1.3); Total Protein 4.7 g/dl (6.3-8.2)
[2024-04-10 12:47] LABS: Glucose - Point of Care 161 mg/dl (70-99)
--- NOTE | 2024-04-10 13:00 | W.PN.UPDATE ---
Update Note
Progress Note Update
Labs returned. Potassium 6.0, creatinine up to 3.7. Blood pressure stable. Returned to speak the patient. I also spoke to the mother independently after my visit with the patient. We discussed the laboratory abnormalities. Potassium will be
treated medically with Lokelma and dextrose and insulin. Serial blood work will be performed. We discussed the creatinine rise. There does not appear to be any sign of plateau. There is a distinct risk that she will require dialysis in the next
48 to 72 hours. They understand that this hopefully will be temporary if needed. Plumbing in labor and delivery is not suited for dialysis and she will require a different bed, prefer IMU.
[2024-04-10] MEDS: LOKELMA 10 GRAM PO ×2 (14:05→17:46)
--- NOTE | 2024-04-10 14:23 | CON.HOSP ---
Consultation
-
Date/Time Consultation Requested: 04/10/2024
Date/Time Consultation Performed: 04/10/2024
Requesting Provider: Collette Duarte DO
Performing Provider: Estrellita Fields MD
Reason for Consultation: Medical management
Family Physician
-
Family Physician: NOT KNOW UNKNOWN - PT DOES
Chief Complaint
-
Concern for HELLP syndrome
History of Present Illness
Patient is a pleasant 28 years old who has history of preeclampsia, admitted to the hospital and underwent on 04/09, patient was 35 weeks , suspected placental abruption, baby currently in NICU at [facility].
After patient found to have low platelet down to 53, normal globin down to 7.4 with elevated creatinine up to 3.7, potassium 6.0, sodium 127
Elevated liver enzymes.
Patient was seen by nephrology and hematology for consultation.
Patient transferred to IMU for close monitoring, consult to hospitalist.
Patient seen and examined at bedside, denies any chest pain or shortness of breath, no abdominal pain,, had mild nausea which resolved, no vomiting, no diarrhea or constipation.
Medical History
Allergies / Home Medications
Allergies reflects when Allergies were last updated in [employer].
Home Medications with original date entered in [employer]
Allergy/Medication List:
Allergies
Allergy/AdvReac Type Severity Reaction Status Date / Time
No Known Allergies Allergy Verified 04/09/24 16:03
Home Medications
1 tab PO 1XD Supplement 03/29/24
Review of Systems
-
Constitutional: Denies Fever, Weight Gain or Weight Loss
EENT: Denies Tearing, Sore Throat or Mouth Pain
Respiratory: Denies Cough, Hemoptysis or Trouble Breathing
Cardiac: Denies Chest Pain, Diaphoresis or Palpitations
Abdomen/GI: Reports Nausea and Constipated; Denies Abdominal Pain, Vomiting or Diarrhea
: Denies Dysuria, Frequency or Flank Pain
Musculoskeletal: Denies Joint Pain or Joint Swelling
Skin: Denies Itching or Rash
Neurological: Denies Dizzy, Headache or Weakness
Endocrine: Denies Polyuria, Polydipsia or Temp Intolerance
Hematologic/Lymphatic: Denies Bleeding, Swollen Glands or Bruising
Psych: Reports Calm
Physical Exam
Vital Signs
Vital Signs
Temp Pulse Resp BP Pulse Ox
97.6 F 68 16 127/71 100
04/10/24 07:52 04/10/24 09:58 04/10/24 07:52 04/10/24 09:58 04/09/24 06:30
Physical Exam
General: Well Developed, Well Nourished and No Apparent Distress
HEENT: Normocephalic, Moist Mucous Membranes and Atraumatic
Respiratory: Clear
Cardiac: S1/S2 and Regular Rhythm; Negative Murmur or Rub
GI: Soft, Non Distended, Normal Bowel Sounds and Tender (At the incision site, but incision is clean)
Rectal: Deferred by Provider
Musculoskeletal: No Clubbing, No Cyanosis and No Edema
Skin: Negative Rash
Neuro: Nonfocal/Grossly Intact
Laboratory Results
-
Laboratory Results
04/10/24 06:41
PT 13.9 Sec (11.4-14.6) 04/09/24 18:58
INR 1.08 04/09/24 18:58
APTT 18.5 Sec (23.4-35.0) L 04/09/24 18:58
Total Bilirubin Cancelled 04/10/24 11:47
AST Cancelled 04/10/24 11:47
ALT Cancelled 04/10/24 11:47
Alkaline Phosphatase Cancelled 04/10/24 11:47
Data Reviewed
-
Diagnostic Radiology: Report Reviewed by Me
Ultrasound: Report Reviewed by Me
Lab Data: Labs Reviewed, Discussed with Physician and Discussed with Nurse
Old Records: Reviewed
Impression / Plan
-
IMPRESSION:
Patient is a pleasant 28 years old with history of preeclampsia who came for at 35 weeks noted to have anemia/thrombocytopenia/renal failure/elevated liver enzymes after , transferred to IMU, consult for medical
management
PLAN:
Possible HELLP syndrome
Appreciate hematology input
Monitor CBC/LFTs daily
Acute renal failure with hyperkalemia
Appreciate nephrology input
Low potassium diet
Insulin/dextrose
Status post .
Management as per primary team.
CODE STATUS: Full code
DVT prophylaxis: No pharmacological DVT prophyxis
Diet: Low potassium diet
--- NOTE | 2024-04-10 15:46 | PTCARENOTE ---
Received patient on transfer from [facility] via bed; patient pulled over x 4 staff assist. Ox3 with continuous blurry vision that patient states has improved slightly. [facility] nurse accompanied patient and confirmed that blurry vision had improved slightly
prior to transfer. Lower transverse abdominal incision approximated and NIKOLAY; [facility] RN visualized as well and states no change. She also assessed fundus and bleeding after bringing patient to unit. She stated she will notify oncoming shift from her
unit to come assess patient's fundus and bleeding. category consultant over to see patient and review breast feeding and pump; patient stated she still had blurry vision so wasn't sure she could do it on her own. category consultant reviewed
procedure with this RN but did state that [facility] RN would come over for scheduled pumping times tonight. Reviewed with Shantell Campos and Lashanda Fritz; confirmed that [facility] staff would be assessing fundus/bleeding and assisting with pumping.
Patient's K+ 6.0 from lab draw on [facility] at 10:41; lokelma ordered and given after patient arrived to IMU. She had been ordered a regular diet and stated she has been drinking apple juice since yesterday (did come to IMU with large cup of apple
juice). Hospitalist was consulted after arrival and Dr Fields was here to see patient. Reviewed with him patient's labs and diet; he changed diet to 2gm potassium. Patient updated. See worklist for full assessment and vital signs; see MAR for med
administration. See updated labs.
Patient's parents currently at bedside; patient's mom stated she will call to order dinner for patient.
[2024-04-10 17:03] LABS: Blood Urea Nitrogen 49 mg/dl (7-17); Calcium 7.8 mg/dl (8.4-10.2); Carbon Dioxide 20 mmol/L (22-30); Chloride 98 mmol/L (98-107); Estimated Creatinine Clearance 26 ml/min; Glucose 84 mg/dl (70-99); LDH 936 U/L (120-246); Potassium 5.8 mmol/L (3.5-5.1); Sodium 125 mmol/L (135-145); eGFR 14.48
--- NOTE | 2024-04-10 17:21 | PTCARENOTE ---
Repeat Creat: 4.1, GFR 14.48, K+ 5.6. Results sent to Dr Peguero via tiger text.
[2024-04-10 21:41] LABS: Blood Urea Nitrogen 56 mg/dl (7-17); Calcium 7.8 mg/dl (8.4-10.2); Carbon Dioxide 19 mmol/L (22-30); Chloride 100 mmol/L (98-107); Estimated Creatinine Clearance 24 ml/min; Glucose 93 mg/dl (70-99); Potassium 5.2 mmol/L (3.5-5.1); Sodium 126 mmol/L (135-145)
[2024-04-10] MEDS: MAGNESIUM SULFATE 40 GRAM IV (21:53)
--- NOTE | 2024-04-10 22:13 | PTCARENOTE ---
Assisted pt with pumping, got a few drops. FF 1 below umbilicus, small vaginal bleeding, pericare and cath care given. pads changed
[2024-04-10 23:00] LABS: Complement C3 110 mg/dl (88-165)
--- NOTE | 2024-04-10 23:49 | PTCARENOTE ---
overnight providers notified of BMP values, no new orders. Randall output charted. Patient awake with no complaints, bl upper extremities elevated on pillows. Patient remains on RA, tolerating po fluids.
[2024-04-11] VITALS (30 sets, daily range): BP systolic 124–160; BP diastolic 64–89; BMI 38.8
--- NOTE | 2024-04-11 03:51 | PTCARENOTE ---
Addendum entered by Ivon Dillard RN 04/11/24 03:53:
pt pumped 1.25cc of breast milk. Pt's pads were changed and marcos care performed.
Original Note:
Assisted pt with pumping. Pericare done. repositioned pt and helped pt to wash up.
[2024-04-11] MEDS: LOKELMA 10 GRAM PO ×3 (05:28→17:34)
[2024-04-11 05:36] LABS: Hematocrit 20.3 % (37.0-47.0); Hemoglobin 6.8 g/dL (12.0-16.0); Mean Corp Hgb Conc. 33.5 g/dL (33.0-37.0); Mean Corpuscular Hgb 30.6 pg (27.0-31.0); Mean Corpuscular Volume 91.4 fL (81.0-99.0); Mean Platelet Volume 11.8 fL (7.4-10.4); Platelet Count 67 10^3/uL (130-400); Red Blood Cell Count 2.22 10^6/uL (4.20-5.40); Red Cell Dist. Width 13.9 % (11.5-14.5); White Blood Cell Count 12.7 10^3/uL (4.8-10.8)
[2024-04-11 05:42] LABS: ALT (SGPT) 25 U/L (0-35); AST (SGOT) 46 U/L (14-36); Albumin 2.5 g/dl (3.5-5.0); Alkaline Phosphatase 157 U/L (38-126); Blood Urea Nitrogen 61 mg/dl (7-17); Calcium 8.1 mg/dl (8.4-10.2); Carbon Dioxide 18 mmol/L (22-30); Chloride 102 mmol/L (98-107); Direct Bilirubin 0.1 mg/dl (0.0-0.4); Estimated Creatinine Clearance 22 ml/min; Glucose 86 mg/dl (70-99); Potassium 5.3 mmol/L (3.5-5.1); Sodium 127 mmol/L (135-145); Total Bilirubin 0.2 mg/dl (0.2-1.3); Total Protein 4.8 g/dl (6.3-8.2); eGFR 11.69
--- NOTE | 2024-04-11 05:51 | PTCARENOTE ---
Provider notified of CBC and BMP values, patient tolerated PO Lokelma this morning. Provider at bedside to obtain blood consent.
--- NOTE | 2024-04-11 05:52 | PTCARENOTE ---
Nephrology provider notified of CBC and BMP values, no new orders.
--- NOTE | 2024-04-11 06:13 | W.PN.UPDATE ---
Update Note
Progress Note Update
Hgb level dropped down from 7.4 to 6.8. Vital signs within normal limit, no signs of bleeding. Blood consent, signed kept in the chart, and one unit of blood was ordered. Cr level is 4.9 this am, urine output 1400cc during this shift, smoking tobacco packer hand
was updated.
--- NOTE | 2024-04-11 08:01 | PTCARENOTE ---
Pt sitting upright in bed. Fundas firm at umbilicus. Catalina pad with scant rubra changed. Pericare given. Dr Ridley at bedside
[2024-04-11] MEDS: TRANDATE 200 MG PO ×2 (08:39→20:31)
--- NOTE | 2024-04-11 08:46 | PTCARENOTE ---
note: Mom in IMU. Assisted with pumping. Mom able to produce 2ml of colostrum. Educated mom on breast massage and hand expression of colostrum. Reviewed care and cleaning of pump parts. Outpatient BF resources provided and reviewed.
--- NOTE | 2024-04-11 09:49 | W.PN.ONC ---
Today's Communication / Plan
-
Platelet count recovery beginning
Asymptomatic but hemoglobin 6.8 g/dL may benefit from transfusion
Continue to monitor parameters
Impression
Impression
HELLP syndrome
Subjective/Objective
Subjective/Objective
Patient feels significantly improved.
Vital Signs:
Vital Signs
Temp Pulse Resp BP Pulse Ox
98.6 F 78 15 136/74 97
04/11/24 09:28 04/11/24 09:28 04/11/24 09:28 04/11/24 09:28 04/11/24 09:28
No scleral icterus
Regular without murmurs
No rales rhonchi or decreased breath sounds in the base
Extremities without ecchymosis or pretibial edema
Lab Results:
Laboratory Data
WBC 12.7 10^3/uL (4.8-10.8) H 04/11/24 04:43
Hgb 6.8 g/dL (12.0-16.0) L* 04/11/24 04:43
Plt Count 67 10^3/uL (130-400) L D 04/11/24 04:43
PT 13.9 Sec (11.4-14.6) 04/09/24 18:58
INR 1.08 04/09/24 18:58
APTT 18.5 Sec (23.4-35.0) L 04/09/24 18:58
eGFR 11.69 04/11/24 04:43
--- NOTE | 2024-04-11 10:13 | W.PN.OBG.DWH ---
Today's Communication / Plan
-
LFT's improving
Complete transfusion, repeat CBC
Out of bed
Monitor/track blood pressures
YUE management as per Nephrology
Assessment/Plan
-
POD #2 S/P P LTCS-stable, continue with post op care.
HELLP-resolving, change in H/H most likely related to changes in blood volume, no sign of any intra-abdominal bleeding. Agree with need for transfusion. Renal issues to continue to be managed by Nephrology.
Above reviewed with patient and her mother.
Subjective Data
-
Patient feeling 'good', denies headaches, visual changes or RIGHT upper quadrant pain. Is eating, looking forward to getting out of bed. Patiient reports baby Theodan is doing stable.
Objective Data
-
Laboratory Results
04/11/24 04:43
04/11/24 04:43
Vital Signs
Temp Pulse Resp BP Pulse Ox
98.6 F 78 15 136/74 97
04/11/24 09:28 04/11/24 09:28 04/11/24 09:28 04/11/24 09:28 04/11/24 09:28
Lungs-clear
heart-rate and rhythm regular
Abdomen-soft, nontender, mildly distended, good bowel sounds, incision clean/dry and intact
Extremities-no calf pain
--- NOTE | 2024-04-11 10:28 | W.PN.NEPH.PH ---
Today's Communication / Plan
-
lasix
Assessment/Plan
-
Assessment
Pre-eclampsia
Placental abruption
YUE
oliguria
NAGMA + respiratory alkalosis
Plan:
clinically appears to be HELLP
plt/LFT improving
follow LDH, also improving
There is still a possibility she may require dialysis
follow BMP
lasix today with blood
d/w pt and mother
-
-
Date of Service: April 11, 2024
CC / HPI / ROS
-
Chief Complaint:
YUE
History of Present Illness:
BP stable
LFTs improving
Platelets up to 67
K stable high 5.3
Na low 127
Hgb 6.8, getting PRBC
YUE/Cr up to 4.9
edema persists, but nonologuric
Review of Systems:
no CP/SOB
Labs
-
Labs:
WBC 12.7 10^3/uL (4.8-10.8) H 04/11/24 04:43
RBC 2.22 10^6/uL (4.20-5.40) L 04/11/24 04:43
Hgb 6.8 g/dL (12.0-16.0) L* 04/11/24 04:43
Hct 20.3 % (37.0-47.0) L* 04/11/24 04:43
Plt Count 67 10^3/uL (130-400) L D 04/11/24 04:43
Sodium 127 mmol/L (135-145) L 04/11/24 04:43
Potassium 5.3 mmol/L (3.5-5.1) H 04/11/24 04:43
Chloride 102 mmol/L (98-107) 04/11/24 04:43
Carbon Dioxide 18 mmol/L (22-30) L 04/11/24 04:43
BUN 61 mg/dl (7-17) H 04/11/24 04:43
Creatinine 4.9 mg/dL (0.6-1.0) H* 04/11/24 04:43
eGFR 11.69 04/11/24 04:43
Glucose 86 mg/dl (70-99) 04/11/24 04:43
Calcium 8.1 mg/dl (8.4-10.2) L 04/11/24 04:43
Albumin 2.5 g/dl (3.5-5.0) L 04/11/24 04:43
Physical Exam
-
Vital Signs:
Vital Signs
Temp Pulse Resp BP Pulse Ox
98.6 F 78 15 136/74 97
04/11/24 09:28 04/11/24 09:28 04/11/24 09:28 04/11/24 09:28 04/11/24 09:28
Cardiovascular:: Regular rate and rhythm
Respiratory:: Bilateral: CTA
Lung Excursion:: Normal
Abdomen:: Nontender and Soft
Bowel Sounds:: Normal
Extremity Edema:: +3: Bilateral:
[2024-04-11] MEDS: LASIX 20 MG IV (11:50)
[2024-04-11 12:55] LABS: Syphilis/T. pallidum Ab Reflex Negative (Negative)
--- NOTE | 2024-04-11 14:16 | W.PN.HOSP.TC ---
Today's Communication/Plan
-
Blood transfusion
Assessment / Plan
Assessment / Plan
Possible HELLP syndrome
Appreciate hematology input
Monitor CBC/LFTs daily
04/11
LFTs improved.
Platelets improved.
Patient has drop in hemoglobin, will proceed with transfusion.
Acute anemia
No evidence of blood loss.
Proceed with blood transfusion.
Monitor H&H
Acute renal failure with hyperkalemia
Appreciate nephrology input
Low potassium diet
Insulin/dextrose.
04/11
Nephrology following.
No indication for urgent hemodialysis
Hyponatremia.
Continue to monitor
Status post .
Management as per primary team.
CODE STATUS: Full code
DVT prophylaxis: No pharmacological DVT prophyxis
Diet: Low potassium diet
Anticipated Discharge: > 48 hours
Subjective/Interval History
-
Date of Service: April 11, 2024
Patient seen and examined at bedside, mother at bedside, denies any chest pain or shortness of breath, no abdominal pain, no nausea, no vomiting, no diarrhea or constipation.
Reviewed lab results with the patient and her mother at bedside.
Hemoglobin dropped status post blood transfusion.
Slightly worsening creatinine-no indication for urgent hemodialysis.
Objective Data
-
Labs:
Laboratory Results
04/11/24
04:43
WBC 12.7 H
Hgb 6.8 L*
Hct 20.3 L*
Plt Count 67 L D
Sodium 127 L
Potassium 5.3 H
Chloride 102
Carbon Dioxide 18 L
BUN 61 H
Creatinine 4.9 H*
Glucose 86
Calcium 8.1 L
Total Bilirubin 0.2
AST 46 H
ALT 25
Alkaline Phosphatase 157 H
Vital Signs:
Vital Signs
Temp Pulse Resp BP Pulse Ox
98.2 F 84 17 142/80 97
04/11/24 11:40 04/11/24 13:00 04/11/24 13:00 04/11/24 13:00 04/11/24 09:28
I&O
04/10/24 04/11/24 04/12/24
06:59 06:59 06:59
Intake Total 760 / 760 250 / 250
Output Total 1750 / 1750 1400 / 1400
Balance -990 / -990 -1150 / -1150
Physical Exam
-
General: Well Developed and No Apparent Distress
HEENT: Normocephalic, Atraumatic and Moist Mucous Membranes
Respiratory: Clear to Auscultation
Cardiac: Regular Rhythm and S1/S2; Negative Murmur, Rub or Gallop
GI: Nondistended, Normal Bowel Sounds and Tender (Mild tenderness at scar site but the scar is clean); Negative Organomegaly
Rectal: Deferred by Provider
Musculoskeletal: No Clubbing, No Cyanosis and No Edema
Skin: Negative Rash
Neuro: Nonfocal/Grossly Intact
--- NOTE | 2024-04-11 15:11 | CM ---
Patient who is s/p with Dx HELLP syndrome, anemia, ARF with hyperkalemia, hyponatremia. Transfusion today. Receiving IV Pitocin, IV Calcium Gluconate. Seen by nurse.
Met with patient who resides with her Tony in a 2 story condo with 6 FAITH, with 1 flight stairs to living room/kitchen and 1 additional flight up to bedroom/bath.
The patient had been independent in ADLs and ambulation.
She had been active and working.
The patient has no other children - this is her first baby, Baby Boy Theoden is currently at [facility].
No prior DME or VN.
Patient states she has baby car seat, bassinet and baby's room ready at home.
She has breast pump at home.
PCP- [facility]
Pharmacy - [facility]
The patient says her works from home and will be available to assist her at home.
Plan home.
--- NOTE | 2024-04-11 16:17 | PTCARENOTE ---
Assumed care of patient this morning. Administered 1 unit of PRBCs, pt tolerated well. No reaction noted. Patient got up to chair around lunch time with standby assist. Pt is using breast pump, able to produce approx 30ml during last use. Per [facility]
nurse, breast milk is to be labeled with breast milk label (on chart) and put in fridge (medication fridge). Pt's mother will transport down to [facility] for baby. Pt has a lower abdominal wound, approximated and glue is intact. Pt only reports
minor pain at site with movement, otherwise, denies any pain. Assessment, care and VS as charted.
--- NOTE | 2024-04-11 19:00 | PTCARENOTE ---
report received from teja RN. pt OOB in chair, resting comfortably. AAOX3. NSR on telemetry heart rate in 70s. pulses palpable. +2 generalized edema. pt on room air, sat 96%. lung sounds diminished in bases. abdomen round, lower abdominal
incision CDI. hypoactive bowel sounds. reports has not had bowel movement. given prn stool softener. marcos draining clear yellow urine. pt updated on plan of care. LDRP RNs at bedside. see worklist for full nursing assessment.
--- NOTE | 2024-04-11 19:45 | PTCARENOTE ---
Pt OOB to chair, assisted to bed for fundal check. Fundus firm -1, dressing clean, dry, intact. Pads changed. Pt states she is able to use breast pump independently with mom assisting with washing pump parts.
[2024-04-11] MEDS: SENOKOT-S 1 TABLET PO (20:31)
--- NOTE | 2024-04-11 21:04 | W.PN.UPDATE ---
Update Note
Progress Note Update
Pt resting, reports feeling much better. No h/a, visual changes or abd pain except for incisional pain.
No concerns offered. Reports baby is doing well.
[2024-04-12] VITALS (14 sets, daily range): BP systolic 125–152; BP diastolic 66–84; BMI 37.5
[2024-04-12 06:01] LABS: ALT (SGPT) 27 U/L (0-35); AST (SGOT) 43 U/L (14-36); Albumin 2.9 g/dl (3.5-5.0); Alkaline Phosphatase 144 U/L (38-126); Blood Urea Nitrogen 74 mg/dl (7-17); Calcium 8.1 mg/dl (8.4-10.2); Carbon Dioxide 22 mmol/L (22-30); Chloride 104 mmol/L (98-107); Estimated Creatinine Clearance 18 ml/min; Glucose 90 mg/dl (70-99); LDH 735 U/L (120-246); Potassium 4.9 mmol/L (3.5-5.1); Sodium 133 mmol/L (135-145); Total Bilirubin 0.3 mg/dl (0.2-1.3); Total Protein 5.3 g/dl (6.3-8.2); White Blood Cell Count 12.2 10^3/uL (4.8-10.8); eGFR 9.55
[2024-04-12 06:02] LABS: Hematocrit 21.8 % (37.0-47.0); Hemoglobin 7.6 g/dL (12.0-16.0); Mean Corp Hgb Conc. 34.9 g/dL (33.0-37.0); Mean Corpuscular Hgb 31.7 pg (27.0-31.0); Mean Corpuscular Volume 90.8 fL (81.0-99.0); Mean Platelet Volume 11.5 fL (7.4-10.4); Platelet Count 95 10^3/uL (130-400); Red Cell Dist. Width 13.8 % (11.5-14.5)
[2024-04-12] MEDS: LOKELMA 10 GRAM PO (06:02)
[2024-04-12 06:03] LABS: Direct Bilirubin 0.1 mg/dl (0.0-0.4)
[2024-04-12] MEDS: TRANDATE 200 MG PO ×2 (08:07→20:11)
--- NOTE | 2024-04-12 08:37 | PTCARENOTE ---
Pt resting quietly in bed. FF at 1 below umbilicus. Abd incision clean and dry. Scant rubra on krystle pad. Dr Tuttle and primary nurse at bedside discussing lab values and plan of care with pt and pt's mother
--- NOTE | 2024-04-12 08:51 | W.PN.OBG.DWH ---
Today's Communication / Plan
-
await mgmt per renal/hem
may shower
t/c miralax
Assessment/Plan
-
POD#3
s/p CS PEC with SF
PPH
resolving oliguria
Subjective Data
-
no complaints. no bm since delivery, h/o bm q 2d when not
Objective Data
-
Laboratory Results
04/12/24 03:17
04/12/24 03:17
Vital Signs
Temp Pulse Resp BP Pulse Ox
98.1 F 75 15 125/78 97
04/12/24 07:35 04/12/24 08:07 04/12/24 06:00 04/12/24 08:07 04/11/24 09:28
adeq diuresis
lungs cl
cor rrr
abd +bs soft, fundus firm nt
incis c/d/i
ext 1+ edema, athrombics
--- NOTE | 2024-04-12 11:06 | W.PN.ONC2 ---
Today's Communication / Plan
-
follow CBC, CMP, LDH, coags
monitor for bleeding
David management per nephrology
Impression
Impression
HELLP syndrome, s/p
normotensive
Baseline LDH 1447 improved to 735
Hgb improved 6.8->7.6g/dl s/p 1 unit prbc
Platelet count improved to 95,000
normal T bili, transaminitis improved
DAVID worse
Plan
Plan
Monitor CBC, CMP, coags
transfuse for Hgb <7 or as needed for sxs anemia
monitor for bleeding
trend BP
f/u APLS panel
DAVID management per nephrology
Subjective/Objective
Chief Complaint
feeling better
voiding
Subjective
denies overt bleeding, denies hematuria
denies RUQ pain or epigastric pain
denies chest pain or SOB
reports baby doing well
Vital Signs:
Vital Signs
Temp Pulse Resp BP Pulse Ox
98.1 F 80 11 138/80 97
04/12/24 07:35 04/12/24 10:00 04/12/24 10:00 04/12/24 10:00 04/11/24 09:28
Lab Results:
Laboratory Data
WBC 12.2 10^3/uL (4.8-10.8) H 04/12/24 03:17
Hgb 7.6 g/dL (12.0-16.0) L 04/12/24 03:17
Plt Count 95 10^3/uL (130-400) L D 04/12/24 03:17
PT 13.9 Sec (11.4-14.6) 04/09/24 18:58
INR 1.08 04/09/24 18:58
APTT 18.5 Sec (23.4-35.0) L 04/09/24 18:58
eGFR 9.55 04/12/24 03:17
Physical Exam
HEENT: Moist Mucous Membranes; No Jaundice
Cardiology: Normal Sinus Rhythm
Pulmonary: Clear
GI: Soft
Extremities: No Edema
Neuro: Non Focal
--- NOTE | 2024-04-12 13:23 | W.PN.NEPH.PH ---
Today's Communication / Plan
-
- hold fluids/lasix
Assessment/Plan
-
Assessment
Pre-eclampsia
Placental abruption
YUE
oliguria
NAGMA + respiratory alkalosis
Plan:
clinically appears to be HELLP, she is slowly improving (plts/LFTs/LDH) after delivery which also points toward HELLP
Today, her UOP is significantly improved which is reassuring
Discussed that there is a high chance for renal recovery but she may require HD still
follow BMP
hold further lasix today
maintain Randall for accurate I/Os
d/w pt and mother and bedside nurse
-
-
Date of Service: April 12, 2024
CC / HPI / ROS
-
Chief Complaint:
YUE
History of Present Illness:
BP stable
LFTs improving
Platelets up to 95
K improved at 4.9
Na low 133
Hgb 7.6
YUE/Cr up to 5.8
edema persists, but nonologuric
Review of Systems:
no CP/SOB
Labs
-
Labs:
WBC 12.2 10^3/uL (4.8-10.8) H 04/12/24 03:17
RBC 2.40 10^6/uL (4.20-5.40) L 04/12/24 03:17
Hgb 7.6 g/dL (12.0-16.0) L 04/12/24 03:17
Hct 21.8 % (37.0-47.0) L 04/12/24 03:17
Plt Count 95 10^3/uL (130-400) L D 04/12/24 03:17
Sodium 133 mmol/L (135-145) L 04/12/24 03:17
Potassium 4.9 mmol/L (3.5-5.1) 04/12/24 03:17
Chloride 104 mmol/L (98-107) 04/12/24 03:17
Carbon Dioxide 22 mmol/L (22-30) 04/12/24 03:17
BUN 74 mg/dl (7-17) H 04/12/24 03:17
Creatinine 5.8 mg/dL (0.6-1.0) H* 04/12/24 03:17
eGFR 9.55 04/12/24 03:17
Glucose 90 mg/dl (70-99) 04/12/24 03:17
Calcium 8.1 mg/dl (8.4-10.2) L 04/12/24 03:17
Albumin 2.9 g/dl (3.5-5.0) L 04/12/24 03:17
Physical Exam
-
Vital Signs:
Vital Signs
Temp Pulse Resp BP Pulse Ox
98.4 F 80 11 138/80 97
04/12/24 11:40 04/12/24 10:00 04/12/24 10:00 04/12/24 10:00 04/11/24 09:28
Cardiovascular:: Regular rate and rhythm
Respiratory:: Bilateral: Coarse
Lung Excursion:: Normal
Abdomen:: Distended, Soft and Tender
Bowel Sounds:: Normal
Extremity Edema:: None: Bilateral:
Randall Catheter: Yes
--- NOTE | 2024-04-12 14:56 | W.PN.HOSP.TC ---
Today's Communication/Plan
-
monitor kidney function
Assessment / Plan
Assessment / Plan
Possible HELLP syndrome
Appreciate hematology input
Monitor CBC/LFTs daily
04/11
LFTs improved.
Platelets improved.
Patient has drop in hemoglobin, will proceed with transfusion.
04/12
Hemoglobin stable.
Acute anemia
No evidence of blood loss.
Proceed with blood transfusion.
Monitor H&H
Acute renal failure with hyperkalemia
Appreciate nephrology input
Low potassium diet
Insulin/dextrose.
04/11
Nephrology following.
No indication for urgent hemodialysis
04/12
Creatinine is 5.8
No indication for urgent HD
Hyponatremia.
improved
Status post .
Management as per primary team.
CODE STATUS: Full code
DVT prophylaxis: No pharmacological DVT prophyxis
Diet: Low potassium diet
Anticipated Discharge: > 48 hours
Subjective/Interval History
-
Date of Service: April 12, 2024
Patient seen and examined at bedside, mother at bedside, denies any chest pain or shortness of breath, no abdominal pain, no nausea, no vomiting, no diarrhea or constipation.
Reviewed lab results with the patient and her mother at bedside.
worsening creatinine today , patient had 3 L urine output overnight, no indication for urgent hemodialysis.
Objective Data
-
Labs:
Laboratory Results
04/12/24
03:17
WBC 12.2 H
Hgb 7.6 L
Hct 21.8 L
Plt Count 95 L D
Sodium 133 L
Potassium 4.9
Chloride 104
Carbon Dioxide 22
BUN 74 H
Creatinine 5.8 H*
Glucose 90
Calcium 8.1 L
Total Bilirubin 0.3
AST 43 H
ALT 27
Alkaline Phosphatase 144 H
Vital Signs:
Vital Signs
Temp Pulse Resp BP Pulse Ox
98.4 F 80 11 138/80 97
04/12/24 11:40 04/12/24 10:00 04/12/24 10:00 04/12/24 10:00 04/11/24 09:28
I&O
04/11/24 04/12/24 04/13/24
06:59 06:59 06:59
Intake Total 760 / 760 1590 / 1590
Output Total 1750 / 1750 4500 / 4500
Balance -990 / -990 -2910 / -2910
Physical Exam
-
General: Well Developed and No Apparent Distress
HEENT: Normocephalic, Atraumatic and Moist Mucous Membranes
Respiratory: Clear to Auscultation
Cardiac: Regular Rhythm and S1/S2; Negative Murmur, Rub or Gallop
GI: Nondistended, Normal Bowel Sounds and Tender (Mild tenderness at scar site but the scar is clean); Negative Organomegaly
Rectal: Deferred by Provider
Musculoskeletal: No Clubbing, No Cyanosis and No Edema
Skin: Negative Rash
Neuro: Nonfocal/Grossly Intact
--- NOTE | 2024-04-12 15:41 | PTCARENOTE ---
Assumed care of patient this morning. Pt in good spirits but was then tearful following results of labs given by hospitalist, . Pt continues to use pumping machine in room. Milk expressed is being stored in [facility]. Pt was able to shower today.
advising pt is okay to come off monitor to shower. She has no complaints of pain. Assessment, care and VS as charted.
--- NOTE | 2024-04-12 17:17 | CM ---
Patient who is s/p with Dx HELLP syndrome, anemia, ARF with hyperkalemia, hyponatremia. Seen by nurse - breast pumping.
As per prior notes, first baby, Baby Boy Theoden is currently at [facility]. Patient has all needed eqp for baby and mom at home.
Plan home.
--- NOTE | 2024-04-12 21:02 | PTCARENOTE ---
Patient resting in bed quietly, patients mother at bedside with patient. Fundus firm, 1 below umbilicus, scant rubra. Questions answered regarding bleeding, patient and patients mother understanding of education.
--- NOTE | 2024-04-12 21:21 | PTCARENOTE ---
Pt received at 19:00. Pleasant and in good spirits. Pts mother at bedside. Breast pump in room, pumped milk picked up by LDRP. Assessment as documented. Plan of care ongoing.
[2024-04-13] VITALS (13 sets, daily range): BP systolic 131–155; BP diastolic 77–88; BMI 36.5
[2024-04-13 06:07] LABS: Fibrinogen 352 MG/DL (199-459); INR 0.97; PT 12.7 Sec (11.4-14.6)
[2024-04-13 06:09] LABS: % Basophils 0.4 % (0-2); % Eosinophils 1.5 % (0-6); % Immature Granulocytes 1.6 % (0-0.5); % Monocytes 7.6 % (1.7-9.3); % Neutrophils 71.9 % (42.2-75.2); Absolute Eosinophils 0.2 10^3/uL (0-0.7); Absolute Immature Granulocytes 0.2 10^3/uL (0-0.05); Absolute Lymphocytes 1.8 10^3/uL (1.2-3.4); Absolute Monocytes 0.8 10^3/uL (0.1-0.6); Absolute Neutrophils 7.5 10^3/uL (1.4-6.5); Hematocrit 21.4 % (37.0-47.0); Hemoglobin 7.3 g/dL (12.0-16.0); Mean Corp Hgb Conc. 34.1 g/dL (33.0-37.0); Mean Corpuscular Hgb 30.5 pg (27.0-31.0); Mean Corpuscular Volume 89.5 fL (81.0-99.0); Nucleated Red Blood Cells % 0 %; Platelet Count 116 10^3/uL (130-400); Red Blood Cell Count 2.39 10^6/uL (4.20-5.40); Red Cell Dist. Width 14.4 % (11.5-14.5); White Blood Cell Count 10.4 10^3/uL (4.8-10.8)
[2024-04-13 06:19] LABS: D-Dimer 16.72 ug/mlFEU (0.00-0.50)
[2024-04-13 06:27] LABS: ALT (SGPT) 46 U/L (0-35); AST (SGOT) 86 U/L (14-36); Alkaline Phosphatase 132 U/L (38-126); Blood Urea Nitrogen 81 mg/dl (7-17); Calcium 8.1 mg/dl (8.4-10.2); Carbon Dioxide 21 mmol/L (22-30); Chloride 108 mmol/L (98-107); Estimated Creatinine Clearance 20 ml/min; Glucose 86 mg/dl (70-99); Iron 64 ug/dl (37-170); Potassium 5.2 mmol/L (3.5-5.1); Sodium 137 mmol/L (135-145); Total Bilirubin 0.4 mg/dl (0.2-1.3); Total Protein 5.4 g/dl (6.3-8.2); eGFR 10.88
[2024-04-13 06:42] LABS: Percent Saturation 15 % (20-50); Total Iron Binding Capacity 409 ug/dl (265-497)
[2024-04-13] MEDS: TRANDATE 200 MG PO ×2 (08:07→20:30)
[2024-04-13] MEDS: SENOKOT-S 1 TABLET PO (08:16)
--- NOTE | 2024-04-13 12:03 | W.PN.NEPH.PH ---
Today's Communication / Plan
-
- hold diuretics or fluids at this time
Assessment/Plan
-
Assessment
Pre-eclampsia
Placental abruption
YUE
oliguria
NAGMA + respiratory alkalosis
Plan:
clinically appears to be HELLP, she is slowly improving (plts/LFTs/LDH) after delivery which also points toward HELLP
Today, her UOP is significantly improved which is reassuring
Cr seems to have peaked at 5.8, improved to 5.2 today.
The patient has likely escaped HD
follow BMP
hold further lasix today
maintain Randall for accurate I/Os
d/w pt and mother and bedside nurse
-
-
Date of Service: April 13, 2024
CC / HPI / ROS
-
Chief Complaint:
YUE
History of Present Illness:
BP stable
LFTs improving
Platelets up to 116
K slightly up at 5.2
Na normalized to 137
Hgb 7.6
YUE/Cr down to 5.2
edema persists, polyuric
Review of Systems:
no CP/SOB
Labs
-
Labs:
WBC 10.4 10^3/uL (4.8-10.8) 04/13/24 05:41
RBC 2.39 10^6/uL (4.20-5.40) L 04/13/24 05:41
Hgb 7.3 g/dL (12.0-16.0) L 04/13/24 05:41
Hct 21.4 % (37.0-47.0) L 04/13/24 05:41
Plt Count 116 10^3/uL (130-400) L D 04/13/24 05:41
Sodium 137 mmol/L (135-145) 04/13/24 05:41
Potassium 5.2 mmol/L (3.5-5.1) H 04/13/24 05:41
Chloride 108 mmol/L (98-107) H 04/13/24 05:41
Carbon Dioxide 21 mmol/L (22-30) L 04/13/24 05:41
BUN 81 mg/dl (7-17) H 04/13/24 05:41
Creatinine 5.2 mg/dL (0.6-1.0) H* 04/13/24 05:41
eGFR 10.88 04/13/24 05:41
Glucose 86 mg/dl (70-99) 04/13/24 05:41
Calcium 8.1 mg/dl (8.4-10.2) L 04/13/24 05:41
Albumin 3.0 g/dl (3.5-5.0) L 04/13/24 05:41
Physical Exam
-
Vital Signs:
Vital Signs
Temp Pulse Resp BP Pulse Ox
99.1 F 74 14 140/82 99
04/13/24 11:00 04/13/24 06:00 04/13/24 06:00 04/13/24 06:00 04/13/24 09:42
Cardiovascular:: Regular rate and rhythm
Respiratory:: Bilateral: CTA
Lung Excursion:: Normal
Abdomen:: Nontender and Soft
Bowel Sounds:: Normal
Extremity Edema:: +1: Bilateral:
Randall Catheter: Yes
--- NOTE | 2024-04-13 12:06 | PTCARENOTE ---
Into assess fundal height and incision. Pt. s/p csection. Belly soft, fundus firm -1 from umbilicus. Incision well approximated, no drainage, some bruising above and below the incision. Reviewed paperwork ie. birthing worksheet that pt. needs to
fill out before discharge. Also showed pt. how to access the 11 videos for our patients on her tv. Pt. verbalized understanding. Tari Rivas rn.
--- NOTE | 2024-04-13 12:15 | W.PN.HOSP.TC ---
Today's Communication/Plan
-
Monitor blood pressure
Trend CBC daily
IV iron
Trend creatinine, daily output
Assessment / Plan
Assessment / Plan
Possible HELLP syndrome
Preeclampsia
Suspected placental abruption
Appreciate hematology input
Monitor CBC/LFTs daily
Drop in hgb. Trend cbc daily. Transfuse <7
Hemoglobin 7.3. Significant improvement in platelets today.
Started on IV venofer-per onc
Continue with blood pressure control with labetalol 200 mg twice daily
Acute anemia
No evidence of blood loss.
Proceed with blood transfusion.
Monitor H&H
Acute renal failure with hyperkalemia
Non Anion gap metabolic acidosis
Appreciate nephrology input
Low potassium diet for now
Insulin/dextrose.
Mild improvement in creatinine. Remains with good urinary output.
Nephrology correspondence noted. Hold off on fluids and diuretics for now.
No indication for urgent hemodialysis
Continue to monitor urinary output closely.
Hyponatremia.
improved
Status post . Postop day 4
Management as per primary team.
Dietary evaluation as patient will require increased caloric intake as pumping breastmilk
CODE STATUS: Full code
DVT prophylaxis: No pharmacological DVT prophyxis
Diet: Low potassium diet and can switch to regular pending improvement in potassium. Dietary consultation
Discussed with patient mother at bedside in detail. Answered all questions.
Anticipated Discharge: > 48 hours
Subjective/Interval History
-
Date of Service: April 13, 2024
states feeling hungry
passed increased amount of urine
Objective Data
-
Labs:
Laboratory Results
04/13/24
05:41
WBC 10.4
Hgb 7.3 L
Hct 21.4 L
Plt Count 116 L D
PT 12.7
INR 0.97
APTT 27.0
Sodium 137
Potassium 5.2 H
Chloride 108 H
Carbon Dioxide 21 L
BUN 81 H
Creatinine 5.2 H*
Glucose 86
Calcium 8.1 L
Total Bilirubin 0.4
AST 86 H
ALT 46 H
Alkaline Phosphatase 132 H
Vital Signs:
Vital Signs
Temp Pulse Resp BP Pulse Ox
99.1 F 74 14 140/82 99
04/13/24 11:00 04/13/24 06:00 04/13/24 06:00 04/13/24 06:00 04/13/24 09:42
I&O
04/12/24 04/13/24 04/14/24
06:59 06:59 06:59
Intake Total 1590 / 1590 1200 / 1200
Output Total 4500 / 4500 4000 / 4000
Balance -2910 / -2910 -2800 / -2800
Physical Exam
-
General: Well Developed and No Apparent Distress
HEENT: Normocephalic, Atraumatic and Moist Mucous Membranes
Respiratory: Clear to Auscultation
Cardiac: Regular Rhythm and S1/S2; Negative Murmur, Rub or Gallop
GI: Nondistended, Normal Bowel Sounds and Tender (Mild tenderness at scar site but the scar is clean); Negative Organomegaly
Rectal: Deferred by Provider
Musculoskeletal: No Clubbing, No Cyanosis and No Edema
Skin: Negative Rash
Neuro: Awake, AO x 3, No Motor Deficits and Nonfocal/Grossly Intact
Psych: Calm
--- NOTE | 2024-04-13 12:44 | PTCARENOTE ---
Note: Patient pumps independently. Reviewed use of wireless pump. Outpatient resources provided and reviewed. Reinforced breast massage and hand expression of colostrum.
--- NOTE | 2024-04-13 13:05 | W.PN.ONC2 ---
Today's Communication / Plan
-
- platelets continue to improve, hgb stable, Cr slow slight improvement today. Mild uptrend in LFTs noted.
- ordered IV iron to help with erythropoiesis.
- continue to monitor CBC, CMP daily.
Impression
Impression
HELLP syndrome, s/p
YUE
thrombocytopenia
anemia
Plan
Plan
Monitor CBC, CMP, coags. Plts continue to improve, 116,000 now D4 s/p delivery. Hgb stable today at 7.3. ordered IV iron repletion in attempt to expedite RBC recovery.
transfuse for Hgb <7 or as needed for sxs anemia
monitor for bleeding
BP stable on labetalol
f/u APLS panel
YUE management per nephrology. Cr with mild down trend today, 5.2 with good urine output.
Subjective/Objective
Chief Complaint
HELLP syndrome
Subjective
pt has no new complaints today. she is in good mood after being told Cr with mild decrease today to 5.2. She continues to have good urine output. Denies RUQ pain.
Vital Signs:
Vital Signs
Temp Pulse Resp BP Pulse Ox
99.1 F 74 14 140/82 99
04/13/24 11:00 04/13/24 06:00 04/13/24 06:00 04/13/24 06:00 04/13/24 09:42
Lab Results:
Laboratory Data
WBC 10.4 10^3/uL (4.8-10.8) 04/13/24 05:41
Hgb 7.3 g/dL (12.0-16.0) L 04/13/24 05:41
Plt Count 116 10^3/uL (130-400) L D 04/13/24 05:41
PT 12.7 Sec (11.4-14.6) 04/13/24 05:41
INR 0.97 04/13/24 05:41
APTT 27.0 Sec (23.4-35.0) 04/13/24 05:41
eGFR 10.88 04/13/24 05:41
Physical Exam
HEENT: No Jaundice
Cardiology: Normal Sinus Rhythm
Pulmonary: Clear
Extremities: No Edema
Neuro: Non Focal
Review of Systems
Review of Systems
Constitutional: Denies Fever
Cardiovascular: Denies Chest Pain
Neurological: Denies Headache
Orders
Orders
Orders From Last 24 Hours
04/13/24 14:00
Ferric Gluconate [Ferrlecit] 125 mg 0.9% Sodium Chloride 100 ml [Nss] 100 ml IV DAILY@1400
--- NOTE | 2024-04-13 13:52 | W.PN.OBG.DWH ---
Today's Communication / Plan
-
SCDs on at night for DVT/VTE prevention
Trending labs
OOB as able
Assessment/Plan
-
POD#4 s/p Emergent Primary LTCS for abruption placenta/nonreassuring FHT
HELLP syndrome: serum creat improving 5.2 down from 5.8. Cont mgmt per Nephrology.
Slight elevation in LFTs, overall improving over last few days. Anticipate continued decline of LFTs. Will follow
Anemia-hgb stable. Agree transfusion if under 7 or if becomes symptomatic. Presently asymptomatic
Continue SCDs while in bed and not ambulating. Discussed risks for DVT/VTE and encouraged OOB as able.
Subjective Data
-
POD#4
Feeling much improved. Feels her fingers and hands less swollen. Denies SOB,CP. Had small BM so far. Hoping to go today.
Tolerating diet.
Vision still a little blurred but improved.
Reports baby is doing well. Anxious to see him.
Objective Data
-
Laboratory Results
04/13/24 05:41
04/13/24 05:41
Vital Signs
Temp Pulse Resp BP Pulse Ox
99.1 F 74 14 140/82 99
04/13/24 11:00 04/13/24 06:00 04/13/24 06:00 04/13/24 06:00 04/13/24 09:42
VSS afeb
cor: regular rate
plum: clear No R/R/W
abd: soft +bs fundus firm NT, Inc CDI
ext: no calf pain, edema LE to knees, pitting
[2024-04-13] MEDS: FERRLECIT 110 MG IV (14:36)
--- NOTE | 2024-04-13 15:55 | PTCARENOTE ---
Pt received in bed @ 0700. AAOx3. Intermittently will state visual deficit that quickly resolves. Denying pain. SaO2 99% on room air. Lungs clear. Sinus rhythm on front desk monitor. +1 anasarca and +2 LE edema. HR 70s - 80s at rest. SBP 130s - 150s.
Scheduled Labetalol administered. Abdomen tender. Transverse abdominal incision approximated and ecchymotic. Abdomen tender. Pt state small satisfactory bowel movement yesterday. PRN Senokot administered. Pt ambulated to bathroom with assist x1, but
unable to have successful bowel movement. Randall with large amount of clear yellow urine. (L) FA site infiltrated; new IV site added to (R) AC. Ferric Sodium Gluconate Complex infused. Pt ambulated in hallway with assistance. Printed material for low
potassium diet given to patient and diet restrictions reviewed. Pt pumping breast milk; milk sent to [facility] for safe handling.
--- NOTE | 2024-04-13 19:00 | PTCARENOTE ---
cannot verify vital signs captured prior to 1900.
--- NOTE | 2024-04-13 22:05 | PTCARENOTE ---
Per Dr. Garcia, patient no longer needs fundal assessment to be completed Q Shift by [facility] RN. Patient is now a 4 day C/S recovery.
--- NOTE | 2024-04-13 23:38 | PTCARENOTE ---
Received pt sitting up in chair, AAOx3. Reports vision 'at about 90%'- consistently improving. Denies pain. SR on tele. BP 150s/80s. Labetalol PO given as ordered. +2 LE edema, +1 gen anasarca. Foot pumps maintained. On RA, spo2 95%. Lungs CTA. 2g
potassium diet. + bowel sounds. Abdomen tender with lower abd. transverse incision approximated with some ecchymosis surrounding. Randall cath draining clear yellow urine. #20 R FA patent and capped. Pt. now in bed, resting. Pumping breast milk- [facility]
staff coming to tack picker. Call mccurdy in reach
[2024-04-14] VITALS (13 sets, daily range): BP systolic 127–150; BP diastolic 72–91; BMI 36.3
--- NOTE | 2024-04-14 05:44 | PTCARENOTE ---
Pt without complaints overnight. Walked around the IMU + ICU units without issue this morning. Urine remains clear yellow, good UO overnight. See I&O. Labs drawn
[2024-04-14 06:08] LABS: INR 0.97; PT 12.7 Sec (11.4-14.6)
[2024-04-14 06:09] LABS: APTT 29.3 Sec (23.4-35.0); Fibrinogen 356 MG/DL (199-459)
[2024-04-14 06:10] LABS: % Basophils 0.2 % (0-2); % Eosinophils 2.4 % (0-6); % Immature Granulocytes 1.7 % (0-0.5); % Lymphocytes 15.4 % (20.5-51.1); % Monocytes 8.8 % (1.7-9.3); % Neutrophils 71.5 % (42.2-75.2); Absolute Eosinophils 0.2 10^3/uL (0-0.7); Absolute Immature Granulocytes 0.2 10^3/uL (0-0.05); Absolute Lymphocytes 1.6 10^3/uL (1.2-3.4); Absolute Monocytes 0.9 10^3/uL (0.1-0.6); Absolute Neutrophils 7.2 10^3/uL (1.4-6.5); Hematocrit 21.3 % (37.0-47.0); Hemoglobin 7.2 g/dL (12.0-16.0); Mean Corp Hgb Conc. 33.8 g/dL (33.0-37.0); Mean Corpuscular Hgb 31.4 pg (27.0-31.0); Mean Platelet Volume 10.3 fL (7.4-10.4); Nucleated Red Blood Cells % 0 %; Platelet Count 124 10^3/uL (130-400); Red Blood Cell Count 2.29 10^6/uL (4.20-5.40); Red Cell Dist. Width 14.6 % (11.5-14.5); White Blood Cell Count 10.1 10^3/uL (4.8-10.8)
[2024-04-14 06:14] LABS: ALT (SGPT) 36 U/L (0-35); AST (SGOT) 54 U/L (14-36); Albumin 2.9 g/dl (3.5-5.0); Alkaline Phosphatase 130 U/L (38-126); Blood Urea Nitrogen 77 mg/dl (7-17); Calcium 8.2 mg/dl (8.4-10.2); Carbon Dioxide 22 mmol/L (22-30); Chloride 110 mmol/L (98-107); Estimated Creatinine Clearance 26 ml/min; Glucose 91 mg/dl (70-99); Potassium 5.4 mmol/L (3.5-5.1); Sodium 137 mmol/L (135-145); Total Bilirubin 0.4 mg/dl (0.2-1.3); Total Protein 5.5 g/dl (6.3-8.2); eGFR 14.48
[2024-04-14 06:43] LABS: D-Dimer 18.76 ug/mlFEU (0.00-0.50)
[2024-04-14] MEDS: NOVOLIN R 0.05 UNITS IV (07:17)
[2024-04-14] MEDS: DEXTROSE 50% SYRINGE 12.5 GRAMS IV (07:18)
[2024-04-14] MEDS: SENOKOT-S 1 TABLET PO ×2 (07:19→20:01)
[2024-04-14] MEDS: TRANDATE 200 MG PO ×2 (07:19→20:01)
--- NOTE | 2024-04-14 10:21 | PTCARENOTE ---
Pt received in bed @ 0700. AAOx3. Denying pain. Pt stating small deficit in vision that is 'much better' than before. SaO2 99% on room air. Sinus rhythm, HR 70s - 80s at rest. +1 anasarca with +2 LE edema. SBP 120s - 140s. Scheduled Labetalol
administered. Abdomen round, tender. Without satisfactory bowel movement after daily PRN Senokot administration x2. Randall catheter draining large yellow urine. (R) AC #20 intact. Insulin and Dextrose given for K 5.4. Pt ambulated hallway; lap around
unit including ICU.
--- NOTE | 2024-04-14 11:35 | W.PN.HOSP.TC ---
Today's Communication/Plan
-
Repeat H&H and potassium level
Trend creatinine
Monitor urinary output
Bowel regimen
IV iron
Assessment / Plan
Assessment / Plan
Possible HELLP syndrome
Preeclampsia
Suspected placental abruption
Appreciate hematology input
Monitor CBC/LFTs daily
LFTs improving.
Drop in hgb. Trend cbc daily. Transfuse <7
Hemoglobin 7.2. Platelets continues to improve.
Started on IV venofer-per onc
Continue with blood pressure control with labetalol 200 mg twice daily
Mild increase in D-dimer however improvement in other coag factors. Factor VIII and von Willebrand is pending. Anticardiolipin levels are pending.
LDH down trended.
Blood pressure improving 136/88. Avoid overt hypotension to decrease perfusion to kidneys
Acute anemia
No evidence of blood loss.
Status post 1 unit PRBC so far. Iron sats of 15% noted.
Monitor H&H. Mild downtrend. Repeat labs now.
Acute renal failure with hyperkalemia
Non Anion gap metabolic acidosis
Appreciate nephrology input
Low potassium diet for now and repeat labs.
Insulin/dextrose.
Creatinine slowly continues to improve. Remains with good urinary output.
Nephrology correspondence noted. Hold off on fluids and diuretics for now.
No indication for urgent hemodialysis
Continue to monitor urinary output closely.
Hyponatremia.
improved
Status post . Postop day 5
Management as per primary team.
Dietary evaluation as patient will require increased caloric intake as pumping breastmilk
Senokot twice daily. If no bowel movements consider MiraLAX.
Mild visual deficit postanesthesia
Improvement
CODE STATUS: Full code
DVT prophylaxis: No pharmacological DVT prophyxis
Diet: Low potassium diet and can switch to regular pending improvement in potassium. Dietary consultation
Discussed with patient mother at bedside in detail. Answered all questions.
Anticipated Discharge: > 48 hours
Subjective/Interval History
-
Date of Service: April 14, 2024
States that she is persistently hungry
Ambulating in the hallway
States some ongoing lower extremity edema
States of good urinary output
Passing flatulence but no bowel movement yet
Objective Data
-
Labs:
Laboratory Results
04/14/24 04/14/24
05:27 12:00
WBC 10.1
Hgb 7.2 L Pending
Hct 21.3 L Pending
Plt Count 124 L
PT 12.7
INR 0.97
APTT 29.3
Sodium 137 Pending
Potassium 5.4 H Pending
Chloride 110 H Pending
Carbon Dioxide 22 Pending
BUN 77 H Pending
Creatinine 4.1 H* Pending
Glucose 91 Pending
Calcium 8.2 L Pending
Total Bilirubin 0.4
AST 54 H
ALT 36 H
Alkaline Phosphatase 130 H
Vital Signs:
Vital Signs
Temp Pulse Resp BP Pulse Ox
98.6 F 89 19 136/88 99
04/14/24 11:00 04/14/24 10:00 04/14/24 10:00 04/14/24 08:00 04/14/24 10:04
I&O
04/13/24 04/14/24 04/15/24
06:59 06:59 06:59
Intake Total 1200 / 1200 480 / 480
Output Total 4000 / 4000 3500 / 3500
Balance -2800 / -2800 -3020 / -3020
Physical Exam
-
General: Well Developed and No Apparent Distress
HEENT: Normocephalic, Atraumatic and Moist Mucous Membranes
Respiratory: Clear to Auscultation
Cardiac: Regular Rhythm and S1/S2; Negative Murmur, Rub or Gallop
GI: Nondistended, Normal Bowel Sounds and Tender (Mild tenderness at scar site but the scar is clean); Negative Organomegaly
Rectal: Deferred by Provider
Musculoskeletal: No Clubbing, No Cyanosis, Edema, Right Lower Extrem and Edema, Left Lower Extrem
Skin: Negative Rash
Neuro: Awake, Alert, Oriented, AO x 3, No Motor Deficits and Nonfocal/Grossly Intact
Psych: Calm
Data Reviewed
-
Total Time Spent with Patient (in minutes): 56
[2024-04-14] MEDS: DULCOLAX 10 MG RECTAL (13:04)
[2024-04-14 13:06] LABS: Hematocrit 22.4 % (37.0-47.0); Hemoglobin 7.6 g/dL (12.0-16.0)
[2024-04-14 13:15] LABS: Blood Urea Nitrogen 78 mg/dl (7-17); Carbon Dioxide 21 mmol/L (22-30); Chloride 109 mmol/L (98-107); Estimated Creatinine Clearance 27 ml/min; Glucose 131 mg/dl (70-99); Potassium 5.2 mmol/L (3.5-5.1); Sodium 137 mmol/L (135-145); eGFR 15.86
[2024-04-14] MEDS: FERRLECIT 110 MG IV (13:32)
--- NOTE | 2024-04-14 13:55 | W.PN.OBG.DWH ---
Today's Communication / Plan
-
Encourage OOB, enema as no BM yet
Assessment/Plan
-
POD#5 s/p [facility] LTCS 04/09/24 for placental abruption and NR FHT
HELLP syndrome- labs continue to improve. Creatinine down to 3.8 today and AST, ALT decreasing c/w improved renal and hepatic fxn and resolving HELLP.
-Labetalol 200mg BID for hypertension. Will hold at current doing for now to avoid hypotension. Will defer mgmt dosing to Nephrology.
-Cont DVT prophylaxis, encouraged OOB, SCDs while in bed
-follow labs
-PO pain mgmt
Cont postop care
Subjective Data
-
I saw Lalenia approx 10:30 am today. Late entry note.
Feeling well. Denies headache, RUQ pain, lightheadness, dizziness, SOB, CP. Minimal bleeding.
No BM yet and limited gas. Has enema ordered.
States vision changes almost 99% back to normal.
Objective Data
-
Laboratory Results
04/14/24 12:55
04/14/24 12:55
Vital Signs
Temp Pulse Resp BP Pulse Ox
98.6 F 89 19 136/88 99
04/14/24 11:00 04/14/24 10:00 04/14/24 10:00 04/14/24 08:00 04/14/24 10:04
VSS afeb BPs normotensive to mild elevations 140-150s systolic
Cor: regular
Pulm: clear No R/R/W
Abd: soft +bs fundus firm NT INC C/D/I
ext: no calf pain, pitting edema to calves but seems improved.
--- NOTE | 2024-04-14 14:23 | W.PN.NEPH.PH ---
Today's Communication / Plan
-
- Cr falling
Assessment/Plan
-
Assessment
Pre-eclampsia
Placental abruption
YUE
oliguria
NAGMA + respiratory alkalosis
Plan:
clinically appears to be HELLP, she is slowly improving (plts/LFTs/LDH) after delivery which also points toward HELLP
Today, her UOP is significantly improved which is reassuring
Cr seems to have peaked at 5.8, improved to 3.8
The patient has likely escaped HD
follow BMP
hold further lasix today
maintain Randall for accurate I/Os. likely okay to d/c tomorrow
d/w pt and mother and bedside nurse
-
-
Date of Service: April 14, 2024
CC / HPI / ROS
-
Chief Complaint:
YUE
History of Present Illness:
BP stable
LFTs improving
Platelets up to 116
K slightly up at 5.2
Na normalized to 137
Hgb 7.6
YUE/Cr down to 3.8
edema persists, polyuric
Review of Systems:
no CP/SOB
Labs
-
Labs:
WBC 10.1 10^3/uL (4.8-10.8) 04/14/24 05:27
RBC 2.29 10^6/uL (4.20-5.40) L 04/14/24 05:27
Hgb 7.6 g/dL (12.0-16.0) L 04/14/24 12:55
Hct 22.4 % (37.0-47.0) L 04/14/24 12:55
Plt Count 124 10^3/uL (130-400) L 04/14/24 05:27
Sodium 137 mmol/L (135-145) 04/14/24 12:55
Potassium 5.2 mmol/L (3.5-5.1) H 04/14/24 12:55
Chloride 109 mmol/L (98-107) H 04/14/24 12:55
Carbon Dioxide 21 mmol/L (22-30) L 04/14/24 12:55
BUN 78 mg/dl (7-17) H 04/14/24 12:55
Creatinine 3.8 mg/dL (0.6-1.0) H 04/14/24 12:55
eGFR 15.86 04/14/24 12:55
Glucose 131 mg/dl (70-99) H 04/14/24 12:55
Calcium 8.0 mg/dl (8.4-10.2) L 04/14/24 12:55
Albumin 2.9 g/dl (3.5-5.0) L 04/14/24 05:27
Physical Exam
-
Vital Signs:
Vital Signs
Temp Pulse Resp BP Pulse Ox
98.6 F 89 19 136/88 99
04/14/24 11:00 04/14/24 10:00 04/14/24 10:00 04/14/24 08:00 04/14/24 10:04
Cardiovascular:: Regular rate and rhythm
Respiratory:: Bilateral: CTA
Lung Excursion:: Normal
Abdomen:: Nontender and Soft
Bowel Sounds:: Normal
Extremity Edema:: +1: Bilateral:
Randall Catheter: Yes
--- NOTE | 2024-04-14 20:18 | PTCARENOTE ---
Received pt sitting up in chair, AAOx3. Reports vision consistently improving. Denies pain. SR on tele. BP 140s/80s. Labetalol PO given as ordered. +2 LE edema, +1 gen anasarca. GABINO wraps to LEs. On RA, spo2 98%. Lungs CTA. Regular diet. + bowel
sounds. Abdomen tender with lower abd. transverse incision approximated with some ecchymosis surrounding. Randall cath draining clear yellow urine. #20 R FA patent and capped. Call mccurdy in reach
--- NOTE | 2024-04-14 20:48 | PTCARENOTE ---
cannot verify vitals captured prior to 190
[2024-04-15] VITALS (12 sets, daily range): BP systolic 122–162; BP diastolic 69–96; BMI 35.7
[2024-04-15 05:40] LABS: % Basophils 0.3 % (0-2); % Eosinophils 2.7 % (0-6); % Immature Granulocytes 1.2 % (0-0.5); % Lymphocytes 15.4 % (20.5-51.1); % Monocytes 8.4 % (1.7-9.3); Absolute Eosinophils 0.3 10^3/uL (0-0.7); Absolute Immature Granulocytes 0.1 10^3/uL (0-0.05); Absolute Lymphocytes 1.7 10^3/uL (1.2-3.4); Absolute Monocytes 0.9 10^3/uL (0.1-0.6); Absolute Neutrophils 7.8 10^3/uL (1.4-6.5); Hematocrit 21.6 % (37.0-47.0); Hemoglobin 7.3 g/dL (12.0-16.0); Mean Corp Hgb Conc. 33.8 g/dL (33.0-37.0); Mean Corpuscular Hgb 30.9 pg (27.0-31.0); Mean Corpuscular Volume 91.5 fL (81.0-99.0); Mean Platelet Volume 10.2 fL (7.4-10.4); Nucleated Red Blood Cells % 0 %; Platelet Count 151 10^3/uL (130-400); Red Blood Cell Count 2.36 10^6/uL (4.20-5.40); Red Cell Dist. Width 14.6 % (11.5-14.5); White Blood Cell Count 10.8 10^3/uL (4.8-10.8)
[2024-04-15 05:49] LABS: ALT (SGPT) 30 U/L (0-35); AST (SGOT) 40 U/L (14-36); Albumin 3.2 g/dl (3.5-5.0); Alkaline Phosphatase 134 U/L (38-126); Blood Urea Nitrogen 68 mg/dl (7-17); Calcium 7.9 mg/dl (8.4-10.2); Carbon Dioxide 17 mmol/L (22-30); Chloride 112 mmol/L (98-107); Estimated Creatinine Clearance 34 ml/min; Glucose 95 mg/dl (70-99); Potassium 5.5 mmol/L (3.5-5.1); Sodium 138 mmol/L (135-145); Total Bilirubin 0.5 mg/dl (0.2-1.3); Total Protein 5.9 g/dl (6.3-8.2); eGFR 20.25
[2024-04-15 05:53] LABS: INR 0.97; PT 12.7 Sec (11.4-14.6)
[2024-04-15 05:54] LABS: APTT 30.3 Sec (23.4-35.0); Fibrinogen 419 MG/DL (199-459)
[2024-04-15 06:04] LABS: D-Dimer 18.92 ug/mlFEU (0.00-0.50)
[2024-04-15] MEDS: LOKELMA 10 GRAM PO (06:06)
--- NOTE | 2024-04-15 06:14 | PTCARENOTE ---
K 5.5 this morning. [facility]KE notified. [facility] ordered and administered
[2024-04-15] MEDS: TRANDATE 200 MG PO ×2 (08:58→20:21)
[2024-04-15] MEDS: SENOKOT-S 1 TABLET PO ×2 (08:58→20:21)
--- NOTE | 2024-04-15 10:06 | PTCARENOTE ---
Assumed care of patient this morning. She was tearful this morning about situation. Nephrology at the bedside and advised may take Randall catheter out, removed by RN, URVASHI at 1600. Pt is up walking around room and in hallway with her mom. She was ST
on monitor with walking, HRs 110s. Pt does still have some LE swelling, GABINO wraps applied per order. Lower abdomen incision CDI. Pt reports numbness to this area. Assessment, care and VS as charted.
--- NOTE | 2024-04-15 10:56 | W.PN.OBG.DWH ---
Today's Communication / Plan
-
mgmt as per nephrology, hem/onc
Assessment/Plan
-
POD#6
HELPP- resolving
anemia stable
await void
continue labetalol 200 mg po bid
Subjective Data
-
marcos out, await void, anxious for discharge
Objective Data
-
Laboratory Results
04/15/24 05:27
04/15/24 05:00
Vital Signs
Temp Pulse Resp BP Pulse Ox
98.3 F 84 19 132/83 98
04/15/24 07:55 04/15/24 10:00 04/15/24 06:00 04/15/24 09:48 04/15/24 10:10
lungs cl
cor rrr
abd +bs soft, fundus firm nt
incis c/d/i, ecchymosis beneath incision on each side
ext nontender
[2024-04-15] MEDS: SODIUM BICARBONATE 1300 MG PO ×2 (11:28→20:21)
--- NOTE | 2024-04-15 11:37 | W.PN.NEPH.PH ---
Today's Communication / Plan
-
d/c marcos
low k diet
start po bicarb
Assessment/Plan
-
Assessment
Pre-eclampsia
Placental abruption\\
HELP
YUE
oliguria
NAGMA + respiratory alkalosis
Plan:
felt to have severe form of HELP which is improving
YUE-cr improving and auto diuretic phase now
ok to d/c marcos and follow PVR
hyperkalemia-s/p LOkelma this morning, reviewed low K diet foods
will start sodium bicarb po for met acidosis which should also help hyperkalemia too
BP stable on BB
low hb but stable, plt normalized
if cr improves tomorrow ok for d/c per renal
d/w pt and family at bedside in detail
d/w nursing
need f/u with renal post d/c
-
-
Date of Service: April 15, 2024
CC / HPI / ROS
-
Chief Complaint:
YUE
History of Present Illness:
BP stable
LFTs improving
Platelets up to 150
K slightly up at 5.5
Hgb 7.3 stable
YUE/Cr down to 3.1, bicarb at 17
edema persists, polyuric
Review of Systems:
no CP/SOB
feels well over all
son at [facility] doing well too
breast pumping
Labs
-
Labs:
WBC 10.8 10^3/uL (4.8-10.8) 04/15/24 05:27
RBC 2.36 10^6/uL (4.20-5.40) L 04/15/24 05:27
Hgb 7.3 g/dL (12.0-16.0) L 04/15/24 05:27
Hct 21.6 % (37.0-47.0) L 04/15/24 05:27
Plt Count 151 10^3/uL (130-400) D 04/15/24 05:27
Sodium 138 mmol/L (135-145) 04/15/24 05:00
Potassium 5.5 mmol/L (3.5-5.1) H 04/15/24 05:00
Chloride 112 mmol/L (98-107) H 04/15/24 05:00
Carbon Dioxide 17 mmol/L (22-30) L 04/15/24 05:00
BUN 68 mg/dl (7-17) H 04/15/24 05:00
Creatinine 3.1 mg/dL (0.6-1.0) H 04/15/24 05:00
eGFR 20.25 04/15/24 05:00
Glucose 95 mg/dl (70-99) 04/15/24 05:00
Calcium 7.9 mg/dl (8.4-10.2) L 04/15/24 05:00
Albumin 3.2 g/dl (3.5-5.0) L 04/15/24 05:00
Physical Exam
-
Vital Signs:
Vital Signs
Temp Pulse Resp BP Pulse Ox
98.3 F 84 19 132/83 98
04/15/24 07:55 04/15/24 10:00 04/15/24 06:00 04/15/24 09:48 04/15/24 10:10
Cardiovascular:: Regular rate and rhythm
Respiratory:: Bilateral: CTA
Lung Excursion:: Normal
Abdomen:: Nontender and Soft
Extremity Edema:: +2: Bilateral: (GABINO wraps )
Marcos Catheter: Yes
[2024-04-15] MEDS: FERRLECIT 110 MG IV (13:58)
--- NOTE | 2024-04-15 17:23 | CM ---
Patient who is s/p with Dx HELLP syndrome, anemia, ARF with hyperkalemia. Seen by nurse - breast pumping. Per nurse assessment; ambulating in [place]. [place] d/c'ed.
CM continuing to follow.
Plan home.
--- NOTE | 2024-04-15 19:16 | W.PN.HOSP.TC ---
Today's Communication/Plan
-
continue to follow BP
recheck labs in AM
Assessment / Plan
Assessment / Plan
Possible HELLP syndrome
Preeclampsia
Suspected placental abruption
Appreciate hematology input
Monitor CBC/LFTs daily
LFTs improving.
Drop in hgb. Trend cbc daily. Transfuse <7
Hemoglobin 7.2-->7.3. Platelets continues to improve.
plt 67-->95-->116-->124-->151k
Started on IV venofer-per onc
Continue with blood pressure control with labetalol 200 mg twice daily
Mild increase in D-dimer however improvement in other coag factors. Factor VIII and von Willebrand is pending. Anticardiolipin levels are pending.
LDH down trended.
Blood pressure improving 136/88-151/96. Avoid overt hypotension to decrease perfusion to kidneys
Acute anemia
No evidence of blood loss.
Status post 1 unit PRBC so far. Iron sats of 15% noted.
Monitor H&H. Mild downtrend.
Acute renal failure with hyperkalemia
K 5.2-->5.4-->5.2-->5.5
Non Anion gap metabolic acidosis
Appreciate nephrology input
Low potassium diet for now and repeat labs.
Insulin/dextrose was given.
Creatinine slowly continues to improve. Remains with good urinary output.
5.8-->5.2-->4.1-->3.8-->3.1
Nephrology correspondence noted. Hold off on fluids and diuretics for now.
No indication for urgent hemodialysis
Continue to monitor urinary output closely.
Hyponatremia.
resolved 138
Status post . Postop day 6 04/09
Management as per primary team.
Dietary evaluation as patient will require increased caloric intake as pumping breastmilk
Senokot twice daily. If no bowel movements consider MiraLAX.
Mild visual deficit postanesthesia
Improvement
CODE STATUS: Full code
DVT prophylaxis: No pharmacological DVT prophyxis
Diet: Low potassium diet and can switch to regular pending improvement in potassium. Dietary consultation
Discussed with patient moo mother at bedside in detail. Answered all questions.
Anticipated Discharge: 24 - 48 hours
Subjective/Interval History
-
Date of Service: April 15, 2024
Pt just heard from [facility] regarding , discussed with pt g-mother in room
Objective Data
-
Vital Signs:
Vital Signs
Temp Pulse Resp BP Pulse Ox
98.0 F 88 19 151/96 98
04/15/24 15:55 04/15/24 18:00 04/15/24 06:00 04/15/24 16:00 04/15/24 10:10
I&O
04/14/24 04/15/24 04/16/24
06:59 06:59 06:59
Intake Total 480 / 480 1560 / 1560 1440 / 1440
Output Total 3500 / 3500 3900 / 3900 1800 / 1800
Balance -3020 / -3020 -2340 / -2340 -360 / -360
Review of Systems
-
History Source: Patient and Family (cortezd mother in room)
Constitutional: Denies Fever
EENT: Reports No Symptoms Reported
Respiratory: Reports No Symptoms
Cardiac: Reports No Symptoms
Abdomen/GI: Reports No Symptoms
Skin: Reports Rash (on back)
Physical Exam
-
General: Well Developed, Well Nourished and No Apparent Distress
HEENT: Atraumatic and Moist Mucous Membranes
Respiratory: Clear to Auscultation; Negative Wheezes, Rales or Rhonchi
Cardiac: Regular Rhythm and S1/S2
GI: Nontender and Nondistended
Musculoskeletal: No Clubbing, No Cyanosis and No Edema
Skin: Rash (on back)
--- NOTE | 2024-04-16 03:08 | PTCARENOTE ---
assumed care of patient- pt sitting on couch with mom and . able to make needs known, VSS- pt with some blurry vision still per patient but getting better. RA 98%, site intact with surgical glue, some bruising noted. pt's mother out
to nurses station requesting Dr. Arvizu 'not be patient doctor anymore and for her to come into room anymore.' relayed request to nursing accounts payable supervisor and nursing accounts payable supervisor relaying message to [facility]- pt pumping breast milk and giving to staff to tube
to [facility]. no c/o pain. hoping to get d/c in AM to see her baby. care ongoing.
[2024-04-16 04:48] VITALS: BP 146/93
[2024-04-16 05:05] LABS: % Basophils 0.5 % (0-2); % Eosinophils 2.9 % (0-6); % Immature Granulocytes 1.4 % (0-0.5); % Lymphocytes 18.1 % (20.5-51.1); % Monocytes 8.1 % (1.7-9.3); Absolute Basophils 0.1 10^3/uL (0-0.2); Absolute Eosinophils 0.3 10^3/uL (0-0.7); Absolute Immature Granulocytes 0.1 10^3/uL (0-0.05); Absolute Lymphocytes 1.7 10^3/uL (1.2-3.4); Absolute Monocytes 0.8 10^3/uL (0.1-0.6); Absolute Neutrophils 6.6 10^3/uL (1.4-6.5); Hematocrit 23.7 % (37.0-47.0); Hemoglobin 7.8 g/dL (12.0-16.0); Mean Corp Hgb Conc. 32.9 g/dL (33.0-37.0); Mean Corpuscular Hgb 31.5 pg (27.0-31.0); Mean Corpuscular Volume 95.6 fL (81.0-99.0); Mean Platelet Volume 10.3 fL (7.4-10.4); Nucleated Red Blood Cells % 0 %; Platelet Count 164 10^3/uL (130-400); Red Blood Cell Count 2.48 10^6/uL (4.20-5.40); Red Cell Dist. Width 14.3 % (11.5-14.5); White Blood Cell Count 9.6 10^3/uL (4.8-10.8)
[2024-04-16 05:13] LABS: INR 1.02; PT 13.4 Sec (11.4-14.6)
[2024-04-16 05:14] LABS: APTT 29.3 Sec (23.4-35.0); Fibrinogen 437 MG/DL (199-459)
[2024-04-16 05:26] LABS: ALT (SGPT) 27 U/L (0-35); AST (SGOT) 32 U/L (14-36); Albumin 3.3 g/dl (3.5-5.0); Alkaline Phosphatase 136 U/L (38-126); Blood Urea Nitrogen 48 mg/dl (7-17); Calcium 7.8 mg/dl (8.4-10.2); Carbon Dioxide 19 mmol/L (22-30); Chloride 113 mmol/L (98-107); D-Dimer 17.75 ug/mlFEU (0.00-0.50); Estimated Creatinine Clearance 43 ml/min; Glucose 88 mg/dl (70-99); Potassium 5.1 mmol/L (3.5-5.1); Sodium 139 mmol/L (135-145); Total Bilirubin 0.6 mg/dl (0.2-1.3); eGFR 27.52
[2024-04-16 07:26] VITALS: BP 140/95
[2024-04-16 07:30] VITALS: BMI 34.8
[2024-04-16] MEDS: SODIUM BICARBONATE 1300 MG PO (08:39)
[2024-04-16] MEDS: TRANDATE 200 MG PO (08:39)
[2024-04-16] MEDS: SENOKOT-S 1 TABLET PO (08:39)
--- NOTE | 2024-04-16 09:26 | W.PN.NEPH.PH ---
Today's Communication / Plan
-
ok to d/c per renal
Assessment/Plan
-
Assessment
Pre-eclampsia
Placental abruption\\
HELP
YUE
oliguria
NAGMA + respiratory alkalosis
Plan:
felt to have HELP which is improving
YUE-cr improving and auto diuretic phase now
voiding well post marcos
hyperkalemia-improving, stay on low K diet
decrease sodium bicarb 650mg BID for met acidosis which should also help hyperkalemia too
BP stable on BB, suggested to keep home BP log and call out office if any questions
low hb but stable, plt normalized
d/w pt and family at bedside
d/w nursing
need f/u with renal post d/c
BMP next Monday
-
-
Date of Service: April 16, 2024
CC / HPI / ROS
-
Chief Complaint:
YUE
History of Present Illness:
BP stable
LFTs improving
Platelets up to 164
K better at 5.1
Hgb 7.8 stable
YUE/Cr down to2.5 bicarb at 19
edema improving, polyuric
Review of Systems:
no CP/SOB
feels well over all
son at [facility] concern of MRI brain findings
breast pumping
Labs
-
Labs:
WBC 9.6 10^3/uL (4.8-10.8) 04/16/24 04:46
RBC 2.48 10^6/uL (4.20-5.40) L 04/16/24 04:46
Hgb 7.8 g/dL (12.0-16.0) L 04/16/24 04:46
Hct 23.7 % (37.0-47.0) L 04/16/24 04:46
Plt Count 164 10^3/uL (130-400) 04/16/24 04:46
Sodium 139 mmol/L (135-145) 04/16/24 04:46
Potassium 5.1 mmol/L (3.5-5.1) 04/16/24 04:46
Chloride 113 mmol/L (98-107) H 04/16/24 04:46
Carbon Dioxide 19 mmol/L (22-30) L 04/16/24 04:46
BUN 48 mg/dl (7-17) H 04/16/24 04:46
Creatinine 2.4 mg/dL (0.6-1.0) H 04/16/24 04:46
eGFR 27.52 04/16/24 04:46
Glucose 88 mg/dl (70-99) 04/16/24 04:46
Calcium 7.8 mg/dl (8.4-10.2) L 04/16/24 04:46
Albumin 3.3 g/dl (3.5-5.0) L 04/16/24 04:46
Physical Exam
-
Vital Signs:
Vital Signs
Temp Pulse Resp BP Pulse Ox
98.2 F 80 19 140/95 98
04/16/24 07:30 04/16/24 08:39 04/15/24 06:00 04/16/24 08:39 04/15/24 20:50
Cardiovascular:: Regular rate and rhythm
Respiratory:: Bilateral: CTA
Lung Excursion:: Normal
Abdomen:: Nontender and Soft
Extremity Edema:: None: Bilateral: (trace)
Marcos Catheter: No
[2024-04-16 09:58] VITALS: BP 132/82
--- NOTE | 2024-04-16 10:59 | W.PN.ONC ---
Today's Communication / Plan
-
In light of persistent elevation of the D-dimer, will get venous Doppler. Unable to do CT scan due to her renal function. VQ scan agents may be excreted in her breastmilk.
Impression
Impression
HELLP syndrome, s/p
YUE
thrombocytopenia
anemia
Plan
Plan
Monitor CBC, CMP, coags. Plts continue to improve, 116,000 now D4 s/p delivery. Hgb stable today at 7.3. ordered IV iron repletion in attempt to expedite RBC recovery.
transfuse for Hgb <7 or as needed for sxs anemia
monitor for bleeding
BP stable on labetalol
f/u APLS panel
YUE management per nephrology. Cr with mild down trend today, 5.2 with good urine output.
Subjective/Objective
Subjective/Objective
She is feeling quite good. She denies shortness of breath or chest pain. Examination is unchanged with the exception of some resolving edema in the lower extremities.
Vital Signs:
Vital Signs
Temp Pulse Resp BP Pulse Ox
98.2 F 102 19 132/82 98
04/16/24 07:30 04/16/24 10:00 04/15/24 06:00 04/16/24 09:58 04/15/24 20:50
Lab Results:
Laboratory Data
WBC 9.6 10^3/uL (4.8-10.8) 04/16/24 04:46
Hgb 7.8 g/dL (12.0-16.0) L 04/16/24 04:46
Plt Count 164 10^3/uL (130-400) 04/16/24 04:46
PT 13.4 Sec (11.4-14.6) 04/16/24 04:46
INR 1.02 04/16/24 04:46
APTT 29.3 Sec (23.4-35.0) 04/16/24 04:46
eGFR 27.52 04/16/24 04:46
Orders
Orders
Orders From Last 24 Hours
04/16/24 10:55
US Periph Venous LOWER Ext Don Urgent
--- NOTE | 2024-04-16 11:48 | W.PN.OBG.DWH ---
Today's Communication / Plan
-
US DVT in progress now. If normal then stable for dc home today.
Rx sent
Assessment/Plan
-
A/P:
s/p emergency Csection for Cat 3 tracing
Placental abruption
HELLP syndrome with YUE- labs continually improving. LFTS normal. Creatinine down to 2.4 (3.1 yesterday).. Cleared by Neph for dc today with outpt followup-labs recommended Sunday 04/22
Anemia from blood loss- s/p 1U PRBC. Contineu with iron
Elevated D-Dimer- hematology ordered labs-to be followed up as still pending.
Stable for discharge assuming US of LE normal today.
Reviewed discharge instructions with patient.
Recommend follow up appt with Nephrology as recommended.
Follow up with OB office next week for BP and incision check.
Subjective Data
-
Feeling much better. Was able to have BM after enema.
Feet much less swollen. No headache. Denies CP or SOB, Calf pain or tenderness.
Anxious to go home
Relays that baby had MRI with some abnormal findings and anxious to get home.
Objective Data
-
Laboratory Results
04/16/24 04:46
04/16/24 04:46
Vital Signs
Temp Pulse Resp BP Pulse Ox
98.2 F 102 19 132/82 98
04/16/24 P:30 04/16/24 10:00 04/15/24 06:00 04/16/24 09:58 04/15/24 20:50
VSS afeb BPs normotensive to 140s/80-90s. Yesterday did have one BP 162/95
cor regular
abd: soft NDNT inc cdi
Fundus firm nt Inc cdi
Ext: no calf pain, edema significantly improved b/L LE
--- NOTE | 2024-04-16 11:58 | W.DS.TRANS ---
DC Summary - [employer]
-
Discharge Instructions:
Discharge Diagnosis/Procedures Section, HELLP Syndrome, Placental
abruption
Diet Regular
Activity No strenuous activity
Driving Restrictions no driving 2 wks from delivery
Bathing Restrictions OK to Shower
Blood Work Basic metabolic panel ordered by Nephrology
Instructions:
Stand-Alone Forms: LDRP Delivery
LDRP Hypertensive Disorders
Changes to Home Medications: No
Discharge Medications:
DC Medications w/original date entered in [employer]
1 tab PO 1XD Supplement 03/29/24
acetaminophen 325 mg tablet 650 mg (2 x 325 mg) PO Q4HPRN PRN mild pain #0 tabs 04/16/24
labetalol 200 mg tablet 200 mg PO BID #90 tabs 04/16/24
sennosides 8.6 mg-docusate sodium 50 mg tablet (Stool Softener-Laxative) 1 tab PO BID #0 tabs 04/16/24
sodium bicarbonate 650 mg tablet 650 mg PO BID 60 days #120 tabs 04/16/24
Home Medication Changes
Pending Results: Yes
Additional Pending Results:
placental pathology
Total time spent discharging patient (in min): 30
[2024-04-16 12:58] VITALS: BP 134/79
--- NOTE | 2024-04-16 12:58 | CM ---
Met with patient who was preparing for d/c. The patient says she feels ready to go home today. Her mother will be providing transport.
Patient stated she planned on going down to [facility] to see her baby as soon as she could today. She revealed that she was given some upsetting news by [facility] about the baby's condition (abnormal MRI Brain), and she is anxious to see the baby and speak
with the doctors at [facility]- her is already there.
Plan home today.
[2024-04-16 13:35] LABS: Haptoglobin <10 mg/dL (30-200)
--- NOTE | 2024-04-16 14:06 | W.PN.HOSP.TC ---
Today's Communication/Plan
-
medically cleared for planned dc
Assessment / Plan
Assessment / Plan
Possible HELLP syndrome
Preeclampsia
Suspected placental abruption
Appreciate hematology input, discussed with Dr. Ty
LFTs improving.
Drop in hgb. Trend cbc daily. Transfuse <7
Hemoglobin 7.2-->7.3-->7.8. Platelets continues to improve.
plt 67-->95-->116-->124-->151-->164k
Received IV venofer-per onc
Continue with blood pressure control with labetalol 200 mg twice daily
increase in D-dimer
discussed with Dr. Ty. Ordered venous doppler, which was neg and he believes this was related to the syndrome and not related to a PE
LDH down trended.
Blood pressure improving 136/88-151/96. Avoid overt hypotension to decrease perfusion to kidneys
BP better, 134/79. Pt and mother told to follow BP at home and follow this up with PCP
Acute anemia
No evidence of blood loss.
Status post 1 unit PRBC so far. Iron sats of 15% noted.
Hgb starting to increase, 7.8 today
Acute renal failure with hyperkalemia, better
K 5.2-->5.4-->5.2-->5.5-->5.1
Non Anion gap metabolic acidosis
Appreciate nephrology input
Low potassium diet for now and repeat labs.
Insulin/dextrose was given.
Creatinine slowly continues to improve. Remains with good urinary output.
5.8-->5.2-->4.1-->3.8-->3.1-->2.4
Nephrology correspondence noted. Hold off on fluids and diuretics for now.
No indication for urgent hemodialysis
Continue to monitor urinary output closely.
Hyponatremia.
resolved 138-->139
Status post . Postop day 6 04/09
Management as per primary team.
Dietary evaluation as patient will require increased caloric intake as pumping breastmilk
Senokot twice daily. If no bowel movements consider MiraLAX.
Mild visual deficit postanesthesia
Improvement
CODE STATUS: Full code
DVT prophylaxis: No pharmacological DVT prophyxis
Discussed with patient and mother at bedside in detail. Answered all questions.
Pt to be discharged.
Thank you for the consult
reviewed with nursing
Anticipated Discharge: Today
Subjective/Interval History
-
Date of Service: April 16, 2024
Overall feels better and is anxiously awaiting dc
Objective Data
-
Labs:
Laboratory Results
04/16/24
04:46
WBC 9.6
Hgb 7.8 L
Hct 23.7 L
Plt Count 164
PT 13.4
INR 1.02
APTT 29.3
Sodium 139
Potassium 5.1
Chloride 113 H
Carbon Dioxide 19 L
BUN 48 H
Creatinine 2.4 H
Glucose 88
Calcium 7.8 L
Total Bilirubin 0.6
AST 32
ALT 27
Alkaline Phosphatase 136 H
Vital Signs:
Vital Signs
Temp Pulse Resp BP Pulse Ox
98.2 F 88 19 134/79 98
04/16/24 11:03 04/16/24 10:49 04/15/24 06:00 04/16/24 12:58 04/15/24 20:50
I&O
04/15/24 04/16/24 04/17/24
06:59 06:59 06:59
Intake Total 1560 / 1560 1440 / 1440
Output Total 3900 / 3900 3300 / 3300 600 / 600
Balance -2340 / -2340 -1860 / -1860 -600 / -600
Review of Systems
-
History Source: Patient, Family (mother in room) and Coordinated Provider
Constitutional: Denies Fever
EENT: Reports No Symptoms Reported
Respiratory: Reports No Symptoms
Cardiac: Reports No Symptoms
Abdomen/GI: Reports No Symptoms
Skin: Reports Rash (on back, significantly decreased)
Physical Exam
-
General: Well Developed, Well Nourished and No Apparent Distress
HEENT: Atraumatic and Moist Mucous Membranes
Respiratory: Clear to Auscultation; Negative Wheezes, Rales or Rhonchi
Cardiac: Regular Rhythm and S1/S2
GI: Nontender and Nondistended
Musculoskeletal: No Clubbing, No Cyanosis and No Edema
Skin: Rash (on back)
--- NOTE | 2024-04-16 14:11 | PTCARENOTE ---
Assumed care of pt this morning at 0715. She is alert and oriented, pleasant and cooperative but feeling impatient to get Out of hospital this am. Pt received some 'bad news' about an MRI of her baby (no details provided) and she feels adamant to
get to him [facility]. She is stoic and cooperative. Collaboration with hospitalist/farm labor contractor/[employer]/hr leader assessing pts labs, lower extremity ultrasound, vitals and assess results inpatient cleared for discharge. Pt has some blurred
vision but is able to read the discharge instructions, pt verbalizes understanding of meds, follow up treatments and reasons to notify physicians. Pt has strong understanding of plan of care. Heart rate sr st with activity, NO SOB and NO
desaturations. pedal pulses palpable and US negative. Pt verbalizes understanding of s/s of dvt or PE (sob, ARAMBULA). Pt's mother present at bedside and pt discharged to POV. Pt reports that she received TDAP in office and refuses this today. Breast
milk that has been pumped and stored on LDRP obtained an sent with patient in cooler bag with ice. No further questions at discharge.
== END 2024-04-16 13:48 | disposition home or self-care (01) | DRG 786 ==
LOC: IMU 04:29
PROVIDERS: Hospitalist; Nurse Practitioner Acute Care; Specialist; ADMITTING PHYSICIAN Obstetrics & Gynecology; ATTENDING PHYSICIAN Obstetrics & Gynecology; CONSULT PHYSICIAN Internal Medicine Hematology & Oncology; CONSULT PHYSICIAN Student in an Organized Health Care Education/Training Program; OTHER PHYSICIAN General Practice
PROC: 10D00Z1 Extraction of Products of Conception, Low, Open Approach (ICD-10-PCS; 2024-04-09)
PROC: 30233N1 Transfusion of Nonautologous Red Blood Cells into Peripheral Vein, Percutaneous Approach (ICD-10-PCS; 2024-04-11)
DX: O45.93 Premature separation of placenta, unspecified, third trimester (principal); O90.49 Other postpartum acute kidney failure; N17.9 Acute kidney failure, unspecified; O14.24 HELLP syndrome, complicating childbirth; O32.1XX0 Maternal care for breech presentation, not applicable or unspecified; O36.8330 Maternal care for abnormalities of the fetal heart rate or rhythm, third trimester, not applicable or unspecified; O99.02 Anemia complicating childbirth; O72.3 Postpartum coagulation defects; D69.6 Thrombocytopenia, unspecified; O99.285 Endocrine, nutritional and metabolic diseases complicating the puerperium; E87.5 Hyperkalemia; Z3A.35 35 weeks gestation of pregnancy; Z37.0 Single live birth
CPT/HCPCS: 88307; 76770; 80048; 80053; 81003; 81015; 82043; 82248; 82570; 82728; 82803; 82962; 83010; 83540; 83550; 83615; 84156; 85014; 85018; 85025; 85027; 85045; 85240; 85245; 85246; 85247; 85379; 85384; 85460; 85610; 85730; 86038; 86146; 86147; 86148; 86160; 86780; 86850; 86870; 86900; 86901; 86902; 86920; 86922; 93970; J2916; P9016